=== PATIENT | female | born 1950 | race Caucasian/White ===

== ENCOUNTER 2018-01-08 20:38 | Emergency (ER) | payer MEDICARE, OTHER ==
--- NOTE | 2018-01-08 22:17 | EKG REPORT ---
SEVERITY:- NORMAL ECG - SINUS RHYTHM : Confirmed by: Jimenez Bianchi MD 08-Jan-2018 22:16:34
[2018-01-08 23:08] LABS: ABSOLUTE LYMPHOCYTES (AUTO) 2.1 10^3/uL (0.5-4.7); ABSOLUTE NEUT (AUTO) 4.2 10^3/uL (1.7-8.2); BASOPHILS % (AUTO) 0.6 % (0-2); EOSINOPHILS % (AUTO) 0.6 % (0-6); HEMATOCRIT 39.4 % (36.0-47.0); HEMOGLOBIN 13.6 g/dL (12.0-15.5); LYMPHOCYTES % (AUTO) 28.3 % (13-45); MEAN CORPUSCULAR HEMOGLOBIN 30.6 pg (27.0-33.4); MEAN CORPUSCULAR HGB CONC 34.5 g/dL (32.0-36.0); MEAN CORPUSCULAR VOLUME 89 fl (80-97); MONOCYTES % (AUTO) 13.6 % (3-13); PLATELET COUNT 272 10^3/uL (150-450); RED BLOOD COUNT 4.43 10^6/uL (3.72-5.28); SEGMENTED NEUTROPHILS % (AUTO) 56.9 % (42-78); TOTAL CELLS COUNTED % (AUTO) 100 %; WHITE BLOOD COUNT 7.5 10^3/uL (4.0-10.5)
[2018-01-08 23:33] LABS: ALANINE AMINOTRANSFERASE 119 U/L (9-52); ALBUMIN 3.8 g/dL (3.5-5.0); ANION GAP 8 (5-19); ASPARTATE AMINO TRANSFERASE 92 U/L (14-36); BILIRUBIN,DIRECT 0.2 mg/dL (0.0-0.4); BILIRUBIN,TOTAL 0.2 mg/dL (0.2-1.3); BLOOD UREA NITROGEN 17 mg/dL (7-20); CALCIUM 9.2 mg/dL (8.4-10.2); CARBON DIOXIDE 32 mmol/L (22-30); CHLORIDE 98 mmol/L (98-107); GLUCOSE 131 mg/dL (75-110); NEONATAL BILIRUBIN RESULT 0.1 mg/dL (0.1-1.1); POTASSIUM 4.3 mmol/L (3.6-5.0); SODIUM 138.3 mmol/L (137-145); TOTAL PROTEIN 6.8 g/dL (6.3-8.2)
[2018-01-08 23:36] LABS: ALKALINE PHOSPHATASE 145 U/L (38-126)
[2018-01-09 01:03] LABS: AMORPHOUS SEDIMENT,URINE TRACE /HPF
[2018-01-09 01:10] LABS: APPEARANCE,URINE SLIGHTLY-CLOUDY; BILIRUBIN,URINE NEGATIVE (NEGATIVE); COLOR,URINE AMBER; GLUCOSE, URINE NEGATIVE (NEGATIVE); KETONES,URINE NEGATIVE (NEGATIVE); PROTEIN,URINE 30 mg/dL (NEGATIVE); URINE SPECIFIC GRAVITY 1.032
[2018-01-09 01:11] LABS: LEUKOCYTE ESTERASE,URINE LARGE (NEGATIVE); NITRITE,URINE NEGATIVE (NEGATIVE); UROBILINOGEN,URINE NEGATIVE mg/dL (<2.0)
[2018-01-09] MEDS ORDERED: CEPHALEXIN 500 MG CAPSULE PO ONE (01:42)
[2018-01-09] MEDS ORDERED: KETOROLAC TROMETHAMINE INJ/PF 30 MG/1 ML SDV IV ONE (02:07)
[2018-01-09] MEDS ORDERED: CEFTRIAXONE INJ 1000 MG VIAL IV ONE (02:07)
[2018-01-09] MEDS ORDERED: PROCHLORPERAZINE EDISYLATE INJ 10 MG/2 ML VIAL IV ONE (02:07)
[2018-01-09] MEDS ORDERED: NORMAL SALINE 1000 ML 1,000 ML IV ONE (02:08)
--- NOTE | 2018-01-09 02:12 | ER Document Report ---
ED General - General Chief Complaint: General Weakness Stated Complaint: LOWER BACK PAIN Time Seen by Provider: 01/09/18 00:19 Notes: Patient is a 67-year-old female with past medical history as recorded who presents with multiple complaints. Her main complaint is of bilateral CVA tenderness that is a dull, constant throbbing pain that has been worsening over the last several days. She also notes associated body aches, weakness and headache. She saw her primary care doctor several days ago for the same complaint, was started on valacyclovir for possible onset of shingles but has not yet developed a rash or any specific area of dermatologic disturbance. She denies a history of similar symptoms in the past. She denies any focal abdominal pain, vomiting, weakness, numbness, confusion, but does note that she had a fever up to 102F today. She has been taking valacyclovir as well as doxycycline as prescribed by her primary care doctor without improvement of her symptoms. Nothing worsens her symptoms. TRAVEL OUTSIDE OF THE [place] IN LAST 30 DAYS: No - Related Data Allergies/Adverse Reactions: morphine [Morphine] Allergy (Severe, Verified 02/15/15 09:24) Hives Past Medical History - General Information source: Patient - Social History Smoking Status: Never Smoker Frequency of alcohol use: None Drug Abuse: None Lives with: Family Family History: Reviewed & Not Pertinent - Past Medical History Cardiac Medical History: Reports: Hx Hypercholesterolemia, Hx Hypertension - medication Denies: Hx Coronary Artery Disease, Hx Heart Attack Pulmonary Medical History: Reports: Hx Asthma - "years ago", Hx Bronchitis, Hx Pneumonia Denies: Hx COPD Neurological Medical History: Denies: Hx Cerebrovascular Accident, Hx Seizures GI Medical History: Denies: Hx Hepatitis, Hx Hiatal Hernia, Hx Ulcer Musculoskeltal Medical History: Reports Hx Arthritis Psychiatric Medical History: Reports: Hx Depression Infectious Medical History: Denies: Hx Hepatitis Past Surgical History: Reports: Hx Appendectomy, Hx Cholecystectomy, Hx Hysterectomy - 1986, Hx Open Heart Surgery - HEART CATH. Denies: Hx Mastectomy , Hx Pacemaker - Immunizations Hx Diphtheria, Pertussis, Tetanus Vaccination: No Review of Systems - Review of Systems Notes: Constitutional: Positive for fever. HENT: Negative for sore throat. Eyes: Negative for visual changes. Cardiovascular: Negative for chest pain. Respiratory: Negative for shortness of breath. Gastrointestinal: Negative for abdominal pain, vomiting or diarrhea. Positive flank pain Genitourinary: Positive for dysuria. Musculoskeletal: Negative for back pain. Skin: Negative for rash. Neurological: Positive for headache 10 point ROS negative except as marked above and in HPI. Physical Exam - Vital signs Vitals: Temp Pulse Resp BP Pulse Ox 99.6 F 85 14 154/60 H 94 01/08/18 21:11 01/08/18 21:11 01/08/18 21:11 01/08/18 21:11 01/08/18 21:11 Interpretation: Hypertensive Notes: PHYSICAL EXAMINATION: GENERAL: Well-appearing, well-nourished and in no acute distress. HEAD: Atraumatic, normocephalic. EYES: Pupils equal round and reactive to light, extraocular movements intact, sclera anicteric, conjunctiva are normal. ENT: nares patent, oropharynx clear without exudates. Moderately dry mucous membranes. NECK: Normal range of motion, supple without lymphadenopathy LUNGS: Breath sounds clear to auscultation bilaterally and equal. No wheezes rales or rhonchi. HEART: Regular rate and rhythm without murmurs ABDOMEN: Soft, nontender, normoactive bowel sounds. No guarding, no rebound. No masses appreciated. Bilateral CVA tenderness worse in the right EXTREMITIES: Normal range of motion, no pitting or edema. No cyanosis. NEUROLOGICAL: Face symmetric. Tongue protrudes midline. Extraocular motions intact. Pupils are 2 mm and equally reactive. Normal speech, normal gait. 5 out of 5 strength in both the distal and proximal upper and lower extremities bilaterally. Sensation is grossly intact throughout. Finger to nose testing normal. Pronator drift normal. PSYCH: Normal mood, normal affect. SKIN: Warm, Dry, normal turgor, no rashes or lesions noted. Course - Re-evaluation Re-evalutation: 01/09/18 02:09 Presentation is most consistent with acute pyelonephritis. Laboratories do demonstrate a large amount of white blood cells in the urine as well as bacteria. Patient has had constitutional symptoms at home as well as a fever. CVA tenderness is present on exam. The remainder laboratories are relatively unremarkable without evidence of renal dysfunction. I do not suspect an acute appendicitis, biliary pathology, pancreatitis, intra-abdominal abscess, or tubo- ovarian abscess based on history and examination. Patient has been given a dose of IV ceftriaxone and a liter of fluids. Patient is able to tolerate oral intake without difficulty. Regarding patient's headache: Headache was not maximal in onset, patient has no focal neurologic deficits, no nuchal rigidity, vital signs within normal limits, no papilledema, and patient is overall well in appearance. Based on clinical history and examination I do not suspect an acute subarachnoid hemorrhage, dural venous sinus thrombosis, acute meningitis, or intercranial mass. Given my low clinical suspicion for any acute life- threatening etiology, I do not feel advanced neuro imaging is indicated at this time. Patient will be discharged home on 7 day course of cephalexin. A urine culture has been sent. At this time will discharge with return precautions and follow-up recommendations. Verbal discharge instructions given a the bedside and opportunity for questions given. Medication warnings reviewed. Patient is in agreement with this plan and has verbalized understanding of return precautions and the need for primary care follow-up in the next 24-72 hours. - Vital Signs Vital signs: Temp Pulse Resp BP Pulse Ox 99.6 F 85 14 154/60 H 94 01/08/18 21:11 01/08/18 21:11 01/08/18 21:11 01/08/18 21:11 01/08/18 21:11 - Laboratory Result Diagrams: 01/08/18 22:35 01/08/18 22:35 Laboratory results interpreted by me: 01/08/18 01/08/18 01/09/18 22:35 22:35 00:40 Monocytes % 13.6 H Carbon Dioxide 32 H Glucose 131 H AST 92 H ALT 119 H Alkaline Phosphatase 145 H Urine Protein 30 H Ur Leukocyte Esterase LARGE H Urine Ascorbic Acid 20 H Discharge - Discharge Clinical Impression: Pyelonephritis Headache Qualifiers: Headache type: unspecified Headache chronicity pattern: acute headache Intractability: not intractable Qualified Code(s): R51 - Headache Condition: Good Disposition: HOME, SELF-CARE Additional Instructions: You have been diagnosed with a condition called pyelonephritis which is an infection involving your kidneys and bladder. You have been given a dose of antibiotics here in the emergency department to help begin to treat this infection. Your also being sent home on antibiotics. Please start taking these later on today when you fill the prescription. Complete the course even if you feel better. Please return if you have persistent vomiting, pass out, have worsening pain, become unable to tolerate fluids, or have any other symptoms that are concerning to you. Please follow-up with your primary care physician in the next 24-48 hours. Discontinue doxycycline and valacyclovir. Prescriptions: Cephalexin Monohydrate [Keflex 500 mg Capsule] 500 mg PO Q6H 7 Days capsule Referrals: VIRAJ WHATLEY MD [Primary Care Provider] - Follow up in 3-5 days
[2018-01-09 05:35] VITALS: BP 148/66
== END 2018-01-09 05:00 | disposition home or self-care (01) ==
LOC: ER 20:38
DX: N12 Tubulo-interstitial nephritis, not specified as acute or chronic (principal); R51 Headache; R53.1 Weakness; M54.5 Low back pain; E78.00 Pure hypercholesterolemia, unspecified; I10 Essential (primary) hypertension; Z88.6 Allergy status to analgesic agent; Z90.49 Acquired absence of other specified parts of digestive tract; Z90.710 Acquired absence of both cervix and uterus
CPT/HCPCS: 93005; 99283; 96361; 96374; 96375; 36415; 87086; 85025; 80053; 81001; 93010; J1885; J0780; J0696; J7030

== ENCOUNTER 2018-10-31 07:31 | Day surgery (SDC) | payer MEDICARE ==
[2018-10-31] MEDS ORDERED: DIPHENHYDRAMINE HCL 50 MG/ML VIAL ONE (07:33)
[2018-10-31] MEDS ORDERED: ONDANSETRON HCL INJ/PF 4 MG/2 ML SDV ONE (07:33)
[2018-10-31] MEDS ORDERED: FLUMAZENIL INJ 0.5 MG/5 ML VIAL ONE (07:34)
[2018-10-31] MEDS ORDERED: NALOXONE HCL INJ/PF 0.4 MG/1 ML SDV ONE (07:34)
[2018-10-31] MEDS ORDERED: FENTANYL CITRATE INJ/PF 100 MCG/2 ML AMPUL ONE (07:34)
[2018-10-31] MEDS ORDERED: GLUCAGON,HUMAN RECOMB 1 MG INJ ONE (07:35)
[2018-10-31] MEDS ORDERED: EPINEPHRINE INJ 1 MG/10 ML DISP.SYRIN ONE (07:35)
[2018-10-31] MEDS: MIDAZOLAM 2 MG/2 ML INJ ONE ×2 (08:14→08:17)
--- NOTE | 2018-10-31 08:55 | Operative Report ---
Nonrecallable Operative Report DATE OF SURGERY: 10/31/18 PREOPERATIVE DIAGNOSIS: rectal bleeding POSTOPERATIVE DIAGNOSIS: rectal bleeding OPERATION: colonoscopy and hemorrhoid banding SURGEON: ULYSSES MORENO ANESTHESIA: Moderate Sedation TISSUE REMOVED OR ALTERED: none COMPLICATIONS: none ESTIMATED BLOOD LOSS: none INTRAOPERATIVE FINDINGS: Procedure the patient was in a left lateral decubitus position. Appropriate timeout formation of site. We used the Olympus adult colonoscope with the procedure. Digital rectal exam was performed. The Olympus colonoscope was easily passed into the rectum and advanced to a distance of approximately 130 cm. We were easily able to reach the distal ascending colon. Not able to pass the scope all the way to the ileocecal valve. The scope was slowly withdrawn over the course of approximately 3 minutes. The entire circumferential ascending colon hepatic flexure transverse colon splenic flexure and descending colon were visualized. There were no polyps seen. As we reached the distal descending colon and sigmoid colon. Number of diverticula were seen. Photo documentation was obtained. As we reached the rectum we identified a number of large grade 3 hemorrhoids. Scope was completely withdrawn. After the scope was withdrawn and anoscopy was performed. Hemorrhoidal bands were placed using the suction hemorrhoidal banding device. Hemorrhoid bands were placed at the 7:00 and the 2 o'clock position. Patient tolerated the procedure well was transferred to recovery in stable condition. Anesthesia was Versed 4 mg and fentanyl 50 mcg.
[2018-10-31 09:43] VITALS: BP 125/53
== END 2018-10-31 10:00 | disposition home or self-care (01) ==
LOC: END 07:31
PROVIDERS: ATTEND Surgery
DX: K64.2 Third degree hemorrhoids (principal); K57.30 Diverticulosis of large intestine without perforation or abscess without bleeding; K62.5 Hemorrhage of anus and rectum; I10 Essential (primary) hypertension; R73.03 Prediabetes
CPT/HCPCS: 45378; 46221; 82962; J2250; J3010; J0171; J1200; J1610; J2310; J2405; J3490

== ENCOUNTER 2018-12-21 20:39 | Emergency (ER) | payer MEDICARE ==
[2018-12-21 21:13] VITALS: BP 179/81
[2018-12-21] MEDS ORDERED: IPRATROPIUM/ALBUTEROL 0.5-2.5 MG/3 ML AMPUL NEB ONE (21:50)
--- NOTE | 2018-12-21 21:53 | ER Document Report ---
ED Medical Screen (RME) - General Chief Complaint: Shortness Of Breath Stated Complaint: CHEST WALL PAIN Time Seen by Provider: 12/21/18 21:48 Primary Care Provider: VIRAJ WHATLEY MD [Primary Care Provider] - Follow up as needed Notes: Patient is a 68-year-old female who presents the emergency department with a chief complaint of shortness of breath. Her symptoms started yesterday and she states that she feels "winded." She describes her pain as a fist being punched in her shoulder left blade. She also states that she feels like her heart is beating faster, has some dizziness, and has a faint feeling. She now has an associated cough. 4-5 weeks ago she was diagnosed with pneumonia in urgent care and was given doxycycline and prednisone. She finished her course of antibiotics and steroids and started to feel better, but states that yesterday she had symptoms. She has a past medical history of hypertension hyperlipidemia. Exam: Diminished breath sounds throughout. S1-S2. Normal rhythm and rate. I have greeted and performed a rapid initial assessment of this patient. A comprehensive ED assessment and evaluation of the patient, analysis of test results and completion of medical decision making process will be conducted by an additional ED providers. TRAVEL OUTSIDE OF THE [place] IN LAST 30 DAYS: No - Related Data Allergies/Adverse Reactions: morphine [Morphine] Allergy (Severe, Verified 12/21/18 20:44) Hives Past Medical History - Social History Drug Abuse: None - Past Medical History Cardiac Medical History: Reports: Hx Hypercholesterolemia, Hx Hypertension Denies: Hx Coronary Artery Disease, Hx Heart Attack Pulmonary Medical History: Reports: Hx Asthma - "years ago", Hx Bronchitis, Hx Pneumonia Denies: Hx COPD Neurological Medical History: Denies: Hx Cerebrovascular Accident, Hx Seizures Renal/ Medical History: Denies: Hx Peritoneal Dialysis GI Medical History: Denies: Hx Hepatitis, Hx Hiatal Hernia, Hx Ulcer Musculoskeltal Medical History: Reports Hx Arthritis Psychiatric Medical History: Reports: Hx Depression Infectious Medical History: Denies: Hx Hepatitis Past Surgical History: Reports: Hx Appendectomy, Hx Cholecystectomy, Hx Hysterectomy, Hx Open Heart Surgery - HEART CATH. Denies: Hx Mastectomy, Hx Pacemaker - Immunizations Hx Diphtheria, Pertussis, Tetanus Vaccination: Yes Influenza Administration Date for 07/2017 - 12/2017 Season: 07/10/18 Physical Exam - Vital signs Vitals: Temp Pulse Resp BP Pulse Ox 99.3 F 102 H 16 179/81 H 94 12/21/18 21:11 12/21/18 21:11 12/21/18 21:11 12/21/18 21:11 12/21/18 21:11 Course - Vital Signs Vital signs: Temp Pulse Resp BP Pulse Ox 99.3 F 102 H 16 179/81 H 94 12/21/18 21:11 12/21/18 21:11 12/21/18 21:11 12/21/18 21:11 12/21/18 21:11 Doctor's Discharge - Discharge Referrals: VIRAJ WHATLEY MD [Primary Care Provider] - Follow up as needed
--- NOTE | 2018-12-21 22:38 | RADIOLOGY REPORT (SQ) ---
EXAM DESCRIPTION: XR CHEST 2 VIEWS COMPLETED DATE/TME: 12/21/2018 21:49 CLINICAL HISTORY: 68 years, Female, shortness of breath Compared to 02/15/2015. FINDINGS: The heart is not enlarged. Lungs are clear. No pleural effusion. No consolidation. IMPRESSION: No acute disease.
[2018-12-22 00:49] LABS: ABSOLUTE BASOPHILS # (AUTO) 0.2 10^3/uL (0.0-0.2); ABSOLUTE EOSINOPHILS # (AUTO) 0.3 10^3/uL (0.0-0.6); ABSOLUTE LYMPHOCYTES (AUTO) 3.2 10^3/uL (0.5-4.7); ABSOLUTE NEUT (AUTO) 10.8 10^3/uL (1.7-8.2); EOSINOPHILS % (AUTO) 1.8 % (0-6); HEMOGLOBIN 14.5 g/dL (12.0-15.5); LYMPHOCYTES % (AUTO) 20.9 % (13-45); MEAN CORPUSCULAR HEMOGLOBIN 30.8 pg (27.0-33.4); MEAN CORPUSCULAR HGB CONC 35.3 g/dL (32.0-36.0); MEAN CORPUSCULAR VOLUME 87 fl (80-97); MONOCYTES % (AUTO) 6.4 % (3-13); PLATELET COUNT 325 10^3/uL (150-450); RED BLOOD COUNT 4.69 10^6/uL (3.72-5.28); RED CELL DISTRIBUTION WIDTH 13.6 % (11.5-14.0); SEGMENTED NEUTROPHILS % (AUTO) 69.9 % (42-78); TOTAL CELLS COUNTED % (AUTO) 100 %; WHITE BLOOD COUNT 15.5 10^3/uL (4.0-10.5)
[2018-12-22 01:06] LABS: ALANINE AMINOTRANSFERASE 45 U/L (9-52); ALBUMIN 4.2 g/dL (3.5-5.0); ALKALINE PHOSPHATASE 124 U/L (38-126); ANION GAP 10 (5-19); ASPARTATE AMINO TRANSFERASE 40 U/L (14-36); BILIRUBIN,DIRECT 0.2 mg/dL (0.0-0.4); BILIRUBIN,TOTAL 0.5 mg/dL (0.2-1.3); BLOOD UREA NITROGEN 10 mg/dL (7-20); CALCIUM 9.3 mg/dL (8.4-10.2); CARBON DIOXIDE 31 mmol/L (22-30); CHLORIDE 98 mmol/L (98-107); CREATINE KINASE 64 U/L (30-135); GLUCOSE 154 mg/dL (75-110); SODIUM 138.6 mmol/L (137-145); TOTAL PROTEIN 7.6 g/dL (6.3-8.2)
[2018-12-22] MEDS ORDERED: IPRATROPIUM/ALBUTEROL 0.5-2.5 MG/3 ML AMPUL NEB ONE (01:11)
[2018-12-22 01:18] LABS: CREATINE KINASE MB 0.59 ng/mL (<4.55)
[2018-12-22 01:19] LABS: TROPONIN I < 0.012 ng/mL
[2018-12-22] MEDS ORDERED: ALBUTEROL SULFATE HFA (90 MCG/PUFF) 8 GM MDI (1 MDI/ER DISP) IH PRN (01:26)
[2018-12-22] MEDS ORDERED: BENZONATATE 100 MG CAPSULE PO ONE (01:28)
--- NOTE | 2018-12-22 01:29 | ER Document Report ---
ED General - General Chief Complaint: Shortness Of Breath Stated Complaint: CHEST WALL PAIN Time Seen by Provider: 12/21/18 21:48 Primary Care Provider: VIRAJ WHATLEY MD [Primary Care Provider] - Follow up in 3-5 days Notes: Patient is a 68-year-old female who presents the emergency department with a chief complaint of shortness of breath. Her symptoms started yesterday and she states that she feels "winded." She describes her pain as a fist being punched in her shoulder left blade. She also states that she feels like her heart is beating faster, has some dizziness, and has a faint feeling. She now has an associated cough. 4-5 weeks ago she was diagnosed with pneumonia in urgent care and was given doxycycline and prednisone. She finished her course of antibiotics and steroids and started to feel better, but states that yesterday she had symptoms. She has a past medical history of hypertension hyperlipidemia. TRAVEL OUTSIDE OF THE [place] IN LAST 30 DAYS: No - Related Data Allergies/Adverse Reactions: morphine [Morphine] Allergy (Severe, Verified 12/21/18 20:44) Hives Past Medical History - Social History Smoking Status: Never Smoker Drug Abuse: None Family History: Reviewed & Not Pertinent Patient has suicidal ideation: No Patient has homicidal ideation: No - Past Medical History Cardiac Medical History: Reports: Hx Hypercholesterolemia, Hx Hypertension Denies: Hx Coronary Artery Disease, Hx Heart Attack Pulmonary Medical History: Reports: Hx Asthma - "years ago", Hx Bronchitis, Hx Pneumonia Denies: Hx COPD Neurological Medical History: Denies: Hx Cerebrovascular Accident, Hx Seizures Renal/ Medical History: Denies: Hx Peritoneal Dialysis GI Medical History: Denies: Hx Hepatitis, Hx Hiatal Hernia, Hx Ulcer Musculoskeletal Medical History: Reports Hx Arthritis Psychiatric Medical History: Reports: Hx Depression Infectious Medical History: Denies: Hx Hepatitis Past Surgical History: Reports: Hx Appendectomy, Hx Cholecystectomy, Hx Hysterectomy, Hx Open Heart Surgery - HEART CATH. Denies: Hx Mastectomy, Hx Pacemaker - Immunizations Hx Diphtheria, Pertussis, Tetanus Vaccination: Yes Hx Pneumococcal Vaccination: 10/10/17 Review of Systems - Review of Systems Notes: REVIEW OF SYSTEMS: CONSTITUTIONAL : Denies recent illness. Denies recent unintentional weight loss. Denies fever, chills, or sweats. EENT: See HPI. CARDIOVASCULAR: See HPI RESPIRATORY: Denies shortness of breath, cough, congestion, difficulty breathing, or wheezing. GASTROINTESTINAL: Denies nausea, vomiting, and diarrhea. Denies abdominal pain. Denies constipation. GENITOURINARY: Denies difficulty urinating, burning, blood in urine, urgency or frequency. MUSCULOSKELETAL: Denies neck and back pain. Denies joint pain or swelling. SKIN: Denies rash, itchiness, or lesions HEMATOLOGIC : Denies easy bruising or bleeding. LYMPHATIC: Denies swollen, painful, enlarged glands. NEUROLOGICAL: Denies no numbness or tingling denies weakness. Denies headache. Denies altered mental status. Denies alteration in speech. PSYCHIATRIC: Denies stress, anxiety, alteration in sleep patterns, or depression. All other systems reviewed and negative. Physical Exam - Vital signs Vitals: Temp Pulse Resp BP Pulse Ox 99.3 F 102 H 16 179/81 H 94 12/21/18 21:11 12/21/18 21:11 12/21/18 21:11 12/21/18 21:11 12/21/18 21:11 - Notes Notes: PHYSICAL EXAMINATION: GENERAL: Appears well, healthy, well-nourished, no acute distress. HEAD: Normocephalic, atraumatic. Tenderness noted to maxillary sinuses. EYES: PERRL, conjunctiva normal, all extraocular movements intact, sclera nonicteric ENT: Moist mucous membranes. NECK: Supple, no noticeable swelling, redness, rash. Normal range of motion. LUNGS: Equal breath sounds bilaterally and diminished to auscultation. No wheezes rales or rhonchi. Cough noted. CARDIOVASCULAR: S1-S2, regular rate, regular rhythm. Radial pulses 2+, normal. ABDOMEN: Normoactive bowel sounds. Soft, nontender, no guarding, no rebound tenderness, and no masses palpated. EXTREMITIES: Normal strength and range of motion, no pitting or edema. No cyanosis. NEUROLOGICAL: Moves all extremities upon command. Strength 5/5 in all extremities. PSYCH: Normal mood, normal affect. SKIN: Warm, dry. No rash, lesions, ulcerations noted. Normal skin turgor. Course - Re-evaluation Re-evalutation: The patient has a leukocytosis of 15,000. Her chest X-ray is unremarkable. No pneumonia noted. Her troponin is negative and due to the patient's associated cough, I have a very low suspicion for ACS. Her lung sounds have improved after receiving her duoneb treatment. The patient does have sinus pressure that she has had for the past week or so. She will be started on amoxicillin for 10 days. I have provided her with an inhaler and a spacer here in the ED. She will follow up with her PCP. Return precautions were given. Verbal discharge instructions were given to the patient. They verbalized understanding. They are stable for discharge. - Vital Signs Vital signs: Temp Pulse Resp BP Pulse Ox 99.3 F 102 H 16 179/81 H 94 12/21/18 21:11 12/21/18 21:11 12/21/18 21:11 12/21/18 21:11 12/21/18 21:11 - Laboratory Result Diagrams: 12/22/18 00:40 12/22/18 00:40 Laboratory results interpreted by me: 12/22/18 12/22/18 00:40 00:40 WBC 15.5 H Absolute Neutrophils 10.8 H Carbon Dioxide 31 H Glucose 154 H AST 40 H Discharge - Discharge Clinical Impression: Chest pain Qualifiers: Chest pain type: other chest pain Qualified Code(s): R07.89 - Other chest pain Sinusitis Qualifiers: Sinusitis location: frontal Chronicity: acute Recurrence: non-recurrent Qualified Code(s): J01.10 - Acute frontal sinusitis, unspecified Condition: Stable Disposition: HOME, SELF-CARE Additional Instructions: You were seen today in the emergency department for chest pain. Your labs were normal. Your chest x-ray is normal. You have been given an inhaler. You may take 1 puff every 4-6 hours as needed for any shortness of breath. You have also been given Tessalon Perles to help with your cough. You may take 1 tablet every 8 hours as needed. Please follow-up with your primary care provider within the next 3-5 days in regards to this visit. If you develop shortness of breath, worsening symptoms, fever greater than 100.4 F while on Motrin and Tylenol, or any symptoms that are worrisome to you, please return to the emergency department. Prescriptions: Benzonatate [Tessalon Perles 100 mg Capsule] 100 mg PO Q8HP PRN #40 capsule PRN Reason: Amoxicillin Trihydrate [Amoxil 875 mg Tablet] 1 tab PO BID #20 tablet Referrals: VIRAJ WHATLEY MD [Primary Care Provider] - Follow up in 3-5 days
--- NOTE | 2018-12-22 07:57 | EKG REPORT ---
SEVERITY:- BORDERLINE ECG - SINUS RHYTHM : Confirmed by: Jimenez Bianchi MD 22-Dec-2018 07:56:37
== END 2018-12-22 01:37 | disposition home or self-care (01) ==
LOC: ER 20:39
DX: J01.10 Acute frontal sinusitis, unspecified (principal); R07.89 Other chest pain; R06.02 Shortness of breath; E78.00 Pure hypercholesterolemia, unspecified; I10 Essential (primary) hypertension; Z88.6 Allergy status to analgesic agent; Z90.49 Acquired absence of other specified parts of digestive tract; Z90.710 Acquired absence of both cervix and uterus
CPT/HCPCS: 93005; 99284; 36415; 82553; 82550; 85025; 80053; 84484; 71046; 93010; J3490

== ENCOUNTER 2019-06-28 12:02 | Emergency (ER) | payer MEDICARE ==
[2019-06-28] MEDS ORDERED: DIPHENHYDRAMINE HCL 50 MG/ML VIAL IV ONE (12:22)
[2019-06-28] MEDS ORDERED: NORMAL SALINE 1000 ML 1,000 ML IV ONE (12:23)
[2019-06-28] MEDS ORDERED: METOCLOPRAMIDE HCL INJ/PF 10 MG/2 ML SDV IV ONE (12:23)
--- NOTE | 2019-06-28 12:25 | ER Document Report ---
ED Medical Screen (RME) - General Chief Complaint: Headache Stated Complaint: HEADACHE Time Seen by Provider: 06/28/19 12:17 Primary Care Provider: STACIE ZAFAR MD [Primary Care Provider] - Follow up as needed Notes: Patient is a 68-year-old female presents emergency department with a chief complaint of a headache. Her headache started this morning. It is the account of her head and goes down the side of her head on both sides and into her neck. She states that she feels like she is an ice pick in the back of her eye. She denies any new weakness. Patient states that she was recently diagnosed with MRSA in her urine and was placed on Cipro. Exam: 5 out of 5 strength in all extremities. I have greeted and performed a rapid initial assessment of this patient. A comprehensive ED assessment and evaluation of the patient, analysis of test results and completion of medical decision making process will be conducted by an additional ED providers. TRAVEL OUTSIDE OF THE [place] IN LAST 30 DAYS: No - Related Data Allergies/Adverse Reactions: morphine [Morphine] Allergy (Severe, Verified 12/21/18 20:44) Hives Past Medical History - Social History Chew tobacco use (# tins/day): No Frequency of alcohol use: None - Past Medical History Cardiac Medical History: Reports: Hx Hypercholesterolemia, Hx Hypertension Denies: Hx Coronary Artery Disease, Hx Heart Attack Pulmonary Medical History: Reports: Hx Asthma - "years ago", Hx Bronchitis, Hx Pneumonia Denies: Hx COPD Neurological Medical History: Denies: Hx Cerebrovascular Accident, Hx Seizures Renal/ Medical History: Denies: Hx Peritoneal Dialysis GI Medical History: Denies: Hx Hepatitis, Hx Hiatal Hernia, Hx Ulcer Musculoskeltal Medical History: Reports Hx Arthritis Psychiatric Medical History: Reports: Hx Depression Infectious Medical History: Denies: Hx Hepatitis Past Surgical History: Reports: Hx Appendectomy, Hx Cholecystectomy, Hx Hysterectomy, Hx Open Heart Surgery - HEART CATH. Denies: Hx Mastectomy, Hx Pacemaker - Immunizations Hx Diphtheria, Pertussis, Tetanus Vaccination: Yes Influenza Administration Date for 07/2017 - 12/2017 Season: 07/10/18 Physical Exam - Vital signs Vitals: Temp Pulse Resp BP Pulse Ox 97.4 F 58 L 16 211/74 H 96 06/28/19 12:08 06/28/19 12:08 06/28/19 12:08 06/28/19 12:08 06/28/19 12:08 Course - Vital Signs Vital signs: Temp Pulse Resp BP Pulse Ox 97.4 F 58 L 16 211/74 H 96 06/28/19 12:08 06/28/19 12:08 06/28/19 12:08 06/28/19 12:08 06/28/19 12:08 Doctor's Discharge - Discharge Referrals: STACIE ZAFAR MD [Primary Care Provider] - Follow up as needed
[2019-06-28 12:35] LABS: APPEARANCE,URINE CLEAR; BILIRUBIN,URINE NEGATIVE (NEGATIVE); COLOR,URINE YELLOW; GLUCOSE, URINE NEGATIVE (NEGATIVE); KETONES,URINE NEGATIVE (NEGATIVE); LEUKOCYTE ESTERASE,URINE SMALL (NEGATIVE); NITRITE,URINE NEGATIVE (NEGATIVE); PROTEIN,URINE NEGATIVE (NEGATIVE); URINE SPECIFIC GRAVITY 1.012; UROBILINOGEN,URINE NEGATIVE mg/dL (<2.0)
--- NOTE | 2019-06-28 13:17 | ER Document Report ---
ED General - General Chief Complaint: Headache Stated Complaint: HEADACHE Time Seen by Provider: 06/28/19 12:17 Primary Care Provider: STACIE ZAFAR MD [ACTIVE STAFF] - Follow up as needed TRAVEL OUTSIDE OF THE [place] IN LAST 30 DAYS: No - HPI Patient complains to provider of: headache Notes: 68-year-old female presents with 10/10 throbbing headache started approximately 4- 5 AM. Nothing makes the headache better or worse. Denies any focal neurologic symptoms. Denies fever chills or head trauma. - Related Data Allergies/Adverse Reactions: morphine [Morphine] Allergy (Severe, Verified 12/21/18 20:44) Hives Past Medical History - Social History Smoking Status: Never Smoker Chew tobacco use (# tins/day): No Frequency of alcohol use: None Family History: Reviewed & Not Pertinent Patient has suicidal ideation: No Patient has homicidal ideation: No - Past Medical History Cardiac Medical History: Reports: Hx Hypercholesterolemia, Hx Hypertension Denies: Hx Coronary Artery Disease, Hx Heart Attack Pulmonary Medical History: Reports: Hx Asthma - "years ago", Hx Bronchitis, Hx Pneumonia Denies: Hx COPD Neurological Medical History: Denies: Hx Cerebrovascular Accident, Hx Seizures Renal/ Medical History: Denies: Hx Peritoneal Dialysis GI Medical History: Denies: Hx Hepatitis, Hx Hiatal Hernia, Hx Ulcer Musculoskeletal Medical History: Reports Hx Arthritis Psychiatric Medical History: Reports: Hx Depression Infectious Medical History: Denies: Hx Hepatitis Past Surgical History: Reports: Hx Appendectomy, Hx Cholecystectomy, Hx Hysterectomy, Hx Open Heart Surgery - HEART CATH. Denies: Hx Mastectomy, Hx Pacemaker - Immunizations Hx Diphtheria, Pertussis, Tetanus Vaccination: Yes Hx Pneumococcal Vaccination: 10/10/17 Review of Systems - Review of Systems Notes: REVIEW OF SYSTEMS: CONSTITUTIONAL: -fevers, -chills EENT: -eye pain, -difficulty swallowing, -nasal congestion CARDIOVASCULAR: -chest pain, -syncope. RESPIRATORY: -cough, -SOB GASTROINTESTINAL: -abdominal pain, -nausea, -vomiting, -diarrhea GENITOURINARY: -dysuria, -hematuria MUSCULOSKELETAL: -back pain, -neck pain SKIN: -rash or skin lesions. HEMATOLOGIC: -easy bruising or bleeding. LYMPHATIC: -swollen, enlarged glands. NEUROLOGICAL: -altered mental status or loss of consciousness, positive headache, -neurologic symptoms PSYCHIATRIC: -anxiety, -depression. ALL OTHER SYSTEMS REVIEWED AND NEGATIVE. Physical Exam - Vital signs Vitals: Temp Pulse Resp BP Pulse Ox 97.4 F 58 L 16 211/74 H 96 06/28/19 12:08 06/28/19 12:08 06/28/19 12:08 06/28/19 12:08 06/28/19 12:08 Course - Re-evaluation Re-evalutation: 06/28/19 15:32 Patient given antiemetics diphenhydramine fluid resuscitation patient feeling ma rkedly improved. Extensive lab work-up unremarkable at this time. Patient has had a headache for greater than 6 hours. Mother CAT scan head shows no acute intracranial hemorrhage. Or other focal findings. Patient blood pressure also markedly improved after great reduction in her headache. 06/28/19 16:45 Lumbar puncture results return. Tube 1 had 61 RBCs, TUBE #2 17 RBCs. No subarachnoid hemorrhage, no signs of infection clear tube Patient be discharged home she is now pain-free follow-up PCP return if anything changes - Vital Signs Vital signs: Temp Pulse Resp BP Pulse Ox 97.4 F 58 L 17 155/85 H 96 06/28/19 12:08 06/28/19 12:08 06/28/19 14:02 06/28/19 14:02 06/28/19 14:02 - Laboratory Result Diagrams: 06/28/19 13:05 06/28/19 13:05 Laboratory results interpreted by me: 06/28/19 06/28/19 12:20 13:05 Glucose 111 H AST 40 H Alkaline Phosphatase 127 H Ur Leukocyte Esterase SMALL H Discharge - Discharge Clinical Impression: Headache Qualifiers: Headache type: unspecified Headache chronicity pattern: acute headache Intractability: not intractable Qualified Code(s): R51 - Headache Condition: Stable Disposition: HOME, SELF-CARE Instructions: Headache ([facility]) Referrals: STACIE ZAFAR MD [ACTIVE STAFF] - Follow up as needed
[2019-06-28 13:20] LABS: ABSOLUTE BASOPHILS # (AUTO) 0.1 10^3/uL (0.0-0.2); ABSOLUTE EOSINOPHILS # (AUTO) 0.2 10^3/uL (0.0-0.6); ABSOLUTE LYMPHOCYTES (AUTO) 3.4 10^3/uL (0.5-4.7); ABSOLUTE MONOCYTES (AUTO) 0.7 10^3/uL (0.1-1.4); ABSOLUTE NEUT (AUTO) 4.8 10^3/uL (1.7-8.2); BASOPHILS % (AUTO) 0.8 % (0-2); EOSINOPHILS % (AUTO) 1.9 % (0-6); HEMATOCRIT 38.5 % (36.0-47.0); HEMOGLOBIN 13.3 g/dL (12.0-15.5); LYMPHOCYTES % (AUTO) 37.4 % (13-45); MEAN CORPUSCULAR HEMOGLOBIN 31.3 pg (27.0-33.4); MEAN CORPUSCULAR HGB CONC 34.6 g/dL (32.0-36.0); MEAN CORPUSCULAR VOLUME 90 fl (80-97); MONOCYTES % (AUTO) 7.4 % (3-13); PLATELET COUNT 297 10^3/uL (150-450); RED BLOOD COUNT 4.26 10^6/uL (3.72-5.28); RED CELL DISTRIBUTION WIDTH 13.4 % (11.5-14.0); SEGMENTED NEUTROPHILS % (AUTO) 52.5 % (42-78); TOTAL CELLS COUNTED % (AUTO) 100 %; WHITE BLOOD COUNT 9.2 10^3/uL (4.0-10.5)
--- NOTE | 2019-06-28 13:39 | RADIOLOGY REPORT (SQ) ---
EXAM DESCRIPTION: CT HEAD WITHOUT COMPLETED DATE/TIME: 06/28/2019 1:19 pm REASON FOR STUDY: headache COMPARISON: None. TECHNIQUE: Axial images acquired through the brain without intravenous contrast. Images reviewed wi th bone, brain and subdural windows. Additional sagittal and coronal reconstructions were generated. Images stored on PACS. All CT scanners at this facility use dose modulation, iterative reconstruction, and/or weight based d osing when appropriate to reduce radiation dose to as low as reasonably achievable (ALARA). [facility]: Dose Right [facility]: CareDose [facility]: Dose Right [facility]: Teradose 4D [facility]: [employer] RADIATION DOSE: CT Rad equipment meets quality standard of care and radiation dose reduction techniq ues were employed. CTDIvol: 53.2 mGy. DLP: 1017 mGy-cm. mGy. LIMITATIONS: None. FINDINGS: VENTRICLES: Normal size and contour. CEREBRUM: No masses. No hemorrhage. No midline shift. No evidence for acute infarction. Normal gra y/white matter differentiation. No areas of low density in the white matter. CEREBELLUM: No masses. No hemorrhage. No alteration of density. No evidence for acute infarction. EXTRAAXIAL SPACES: No fluid collections. No masses. Partially empty sella turcica, a nonspecific fi nding. ORBITS AND GLOBE: No intra- or extraconal masses. Normal contour of globe without masses. CALVARIUM: No fracture. PARANASAL SINUSES: No fluid or mucosal thickening. SOFT TISSUES: No mass or hematoma. OTHER: No other significant finding. IMPRESSION: No evidence of acute intracranial process. EVIDENCE OF ACUTE STROKE: NO. COMMENT: Quality ID # 436: Final reports with documentation of one or more dose reduction techniques (e.g., Automated exposure control, adjustment of the mA and/or kV according to patient size, use of iterative reconstruction technique) TECHNICAL DOCUMENTATION: JOB ID: [id number] [employer]- All Rights Reserved Reading location - IP/workstation name: [email or web address]
[2019-06-28 14:09] LABS: ALBUMIN 3.9 g/dL (3.5-5.0); ALKALINE PHOSPHATASE 127 U/L (38-126); ANION GAP 9 (5-19); ASPARTATE AMINO TRANSFERASE 40 U/L (14-36); BILIRUBIN,DIRECT 0.1 mg/dL (0.0-0.4); BILIRUBIN,TOTAL 0.5 mg/dL (0.2-1.3); BLOOD UREA NITROGEN 12 mg/dL (7-20); CARBON DIOXIDE 29 mmol/L (22-30); CHLORIDE 100 mmol/L (98-107); GLUCOSE 111 mg/dL (75-110); POTASSIUM 4.2 mmol/L (3.6-5.0); TOTAL PROTEIN 6.9 g/dL (6.3-8.2)
[2019-06-28 14:29] LABS: INTERNATIONAL RATION (INR) 0.91; PROTHROMBIN TIME 12.2 SEC (11.4-15.4)
--- NOTE | 2019-06-28 15:53 | RADIOLOGY REPORT (SQ) ---
EXAM DESCRIPTION: FLUORO/NEEDLE PLACEMENT/SPINE; LUMBAR PUNCTURE COMPLETED DATE/TIME: 06/28/2019 3:40 pm REASON FOR STUDY: HEADACHE; headache COMPARISON: CT brain 06/18/2019 FLUOROSCOPY TIME: 29 seconds 4 digital radiographic images saved to PACS. TECHNIQUE: Fluoroscopic guided lumbar puncture. LIMITATIONS: None. PROCEDURE: After written consent and assessment were obtained, the patient was brought into the fluo roscopy room and placed prone on the table. The patient's lower back was prepped in a sterile fashio n and an entry site was selected under live fluoroscopic guidance. The entry site was anesthetized wi th 1% lidocaine. A 15 cm long 20 gauge needle was advanced through the skin and into the thecal sac a t the level left paracentral L2-3. After approximately 10.5 ml was drained, the needle was removed a nd a sterile bandage was placed of the site. Specimens were sent to the lab for testing. A fluorosc opic spot image was saved to PACS confirming level access. FINDINGS: Clear CSF, opening pressure 18 cm of water IMPRESSION: Lumbar puncture under fluoroscopy. No immediate complication. COMMENT: Patient medication list reviewed: Yes- Quality ID# 130:Eligible professional attests to doc umenting in the medical record they obtained, updated, or reviewed the patient's current medications. . Quality ID 145: Final reports for procedures using fluoroscopy that document radiation exposure jr carlton, or exposure time and number of fluorographic images (if radiation exposure indices are not avail able) TECHNICAL DOCUMENTATION: JOB ID: [id number] [employer]- All Rights Reserved Reading location - IP/workstation name: [email or web address]
[2019-06-28 16:22] LABS: GLUCOSE,CSF 66 mg/dL (40-70); PROTEIN,CSF 47 mg/dL (12-60)
[2019-06-28 16:36] LABS: APPEARANCE ALL TUBES CLEAR; COLOR ALL TUBES COLORLESS; CSF TUBE NUMBER 1
[2019-06-28 16:37] LABS: RED BLOOD CELL,CSF 61 /uL (0-10); VOLUME TUBE 1 2.2 CC; VOLUME TUBE 3 2.5 CC; VOLUME TUBE 4 3.3 CC
[2019-06-28 16:38] LABS: APPEARANCE ALL TUBES CLEAR; COLOR ALL TUBES COLORLESS; CSF TUBE NUMBER 4; WHITE BLOOD CELL,CSF 2 /uL (0-5)
[2019-06-28 16:39] LABS: RED BLOOD CELL,CSF 17 /uL (0-10); VOLUME TUBE 1 2.2 CC; VOLUME TUBE 3 2.5 CC; VOLUME TUBE 4 3.3 CC
[2019-06-28 16:40] LABS: WHITE BLOOD CELL,CSF 0 /uL (0-5)
[2019-06-28 18:22] VITALS: BP 146/59
== END 2019-06-28 18:25 | disposition home or self-care (01) ==
LOC: ER 12:02
DX: R51 Headache (principal); I10 Essential (primary) hypertension; J45.909 Unspecified asthma, uncomplicated; Z88.5 Allergy status to narcotic agent
CPT/HCPCS: 96374; 99284; 96361; 96375; 36415; 87070; 87205; 85025; 85610; 89050; 82945; 84157; 80053; 81001; 77003; 62270; 70450; J1200; J2765; J7030

== ENCOUNTER 2020-07-20 11:33 | Emergency (ER) | payer MEDICARE ==
[2020-07-20] MEDS ORDERED: OXYCODONE-ACETAMINOPHEN 5-325 MG TABLET PO ONE (12:00)
[2020-07-20] MEDS ORDERED: KETOROLAC TROMETHAMINE INJ/PF 30 MG/1 ML SDV IV ONE (12:00)
[2020-07-20] MEDS ORDERED: DEXAMETHASONE SOD PHOS INJ 10 MG/1 ML VIAL IV ONE (12:00)
--- NOTE | 2020-07-20 12:02 | ER Document Report ---
ED Medical Screen (RME) - General Stated Complaint: WEAKNESS/LEG PAIN Time Seen by Provider: 07/20/20 11:55 Primary Care Provider: VIRAJ WHATLEY MD [Primary Care Provider] - Follow up as needed Notes: HPI: 69-year-old female presenting with left leg weakness numbness and tingling. Patient states that she does not have back pain no incontinence of urine or bowel. Patient states she had been having problems with her left hip and went to see an arthritis doctor in [place] who gave her a deep injection around the left hip region. Patient states since that time a month ago she has had daily numbness and tingling radiating down the leg with a sensation of feeling like her leg was going to "go out on me". Reports that they did not put her on any pain medication. Patient has since followed up with [facility] who did an x-ray of the hip apparently that showed arthritis and I put her on Flexeril and Toradol which is not helping. She has not followed back up with the arthritic doctor, an orthopedic doctor or other primary care provider for evaluation of her symptoms. Patient states she has an implant in the right hip so cannot have MRI PHYSICAL EXAMINATION: Limited exam by positioning in triage. Subjective num bness tingling in the lateral thigh and foot on palpation of the left leg I have greeted and performed a rapid initial assessment of this patient. A comprehensive ED assessment and evaluation of the patient, analysis of test results and completion of medical decision making process will be conducted by an additional ED providers. TRAVEL OUTSIDE OF THE [place] IN LAST 30 DAYS: No - Related Data Allergies/Adverse Reactions: morphine [Morphine] Allergy (Severe, Verified 07/20/20 11:54) Hives Past Medical History - Past Medical History Cardiac Medical History: Reports: Hx Hypercholesterolemia, Hx Hypertension Denies: Hx Coronary Artery Disease, Hx Heart Attack Pulmonary Medical History: Reports: Hx Asthma - "years ago", Hx Bronchitis, Hx Pneumonia Denies: Hx COPD Neurological Medical History: Denies: Hx Cerebrovascular Accident, Hx Seizures Renal/ Medical History: Denies: Hx Peritoneal Dialysis GI Medical History: Denies: Hx Hepatitis, Hx Hiatal Hernia, Hx Ulcer Musculoskeltal Medical History: Reports Hx Arthritis Psychiatric Medical History: Reports: Hx Depression Infectious Medical History: Denies: Hx Hepatitis Past Surgical History: Reports: Hx Appendectomy, Hx Cholecystectomy, Hx Hysterectomy, Hx Open Heart Surgery - HEART CATH. Denies: Hx Mastectomy, Hx Pacemaker - Immunizations Hx Diphtheria, Pertussis, Tetanus Vaccination: Yes Physical Exam - Vital signs Vitals: Temp Pulse Resp BP Pulse Ox 98.3 F 79 20 165/77 H 99 07/20/20 11:43 07/20/20 11:43 07/20/20 11:43 07/20/20 11:43 07/20/20 11:43 Course - Vital Signs Vital signs: Temp Pulse Resp BP Pulse Ox 98.3 F 79 20 165/77 H 99 07/20/20 11:43 07/20/20 11:43 07/20/20 11:43 07/20/20 11:43 07/20/20 11:43 Doctor's Discharge - Discharge Referrals: VIRAJ WHATLEY MD [Primary Care Provider] - Follow up as needed
--- NOTE | 2020-07-20 12:33 | RADIOLOGY REPORT (SQ) ---
EXAM DESCRIPTION: HIP LEFT AP/LATERAL IMAGES COMPLETED DATE/TIME: 07/20/2020 12:17 pm REASON FOR STUDY: pain COMPARISON: None. NUMBER OF VIEWS: Two views. TECHNIQUE: AP pelvis and additional frog legview of the left hip. LIMITATIONS: None. FINDINGS: MINERALIZATION: Normal. PRIMARY HIP: No fracture or dislocation. No worrisome bone lesions. No contour deformity. No joint space narrowing. OPPOSITE HIP: No fracture or dislocation. No worrisome bone lesions. Limited views. PUBIS AND ISCHIUM: No fracture. PELVIS: No fracture. SACRUM: No fracture or dislocation. No worrisome bone lesions. LOWER LUMBAR SPINE: Degenerative disc disease. SOFT TISSUES: No findings. OTHER: Pelvic nerve stimulator device. IMPRESSION: No acute findings. TECHNICAL DOCUMENTATION: JOB ID: [id number] [place]-72 2010 [employer]- All Rights Reserved Reading location - IP/workstation name: [email or web address]
--- NOTE | 2020-07-20 12:35 | RADIOLOGY REPORT (SQ) ---
EXAM DESCRIPTION: L SPINE WHOLE IMAGES COMPLETED DATE/TIME: 07/20/2020 12:17 pm REASON FOR STUDY: left hip pain leg numbness COMPARISON: 06/28/2019 NUMBER OF VIEWS: Five views including obliques. TECHNIQUE: AP, lateral, oblique, and sacral radiographic images acquired of the lumbar spine. LIMITATIONS: None. FINDINGS: MINERALIZATION: Normal. SEGMENTATION: Normal. No transitional anatomy. ALIGNMENT: Normal. VERTEBRAE: Maintained height. No fracture or worrisome bone lesion. DISCS: Multilevel disc space narrowing with osteophytes. POSTERIOR ELEMENTS: Pedicles and facets are intact. No pars defect or posterior arch defects. Facet arthropathy is present. HARDWARE: Pelvic nerve stimulator. PARASPINAL SOFT TISSUES: Normal. PELVIS: Intact as visualized. No fractures or worrisome bone lesions. SI joints intact. OTHER: No other significant finding. IMPRESSION: SPONDYLOSIS WITHOUT BONE LESION OR FRACTURE. TECHNICAL DOCUMENTATION: JOB ID: [id number] [place]-72 2010 [employer]- All Rights Reserved Reading location - IP/workstation name: [email or web address]
[2020-07-20] MEDS ORDERED: ONDANSETRON HCL INJ/PF 4 MG/2 ML SDV IV ONE (12:38)
[2020-07-20 14:14] LABS: ABSOLUTE EOSINOPHILS # (AUTO) 0.1 10^3/uL (0.0-0.6); ABSOLUTE LYMPHOCYTES (AUTO) 2.4 10^3/uL (0.5-4.7); ABSOLUTE MONOCYTES (AUTO) 0.6 10^3/uL (0.1-1.4); ABSOLUTE NEUT (AUTO) 4.3 10^3/uL (1.7-8.2); BASOPHILS % (AUTO) 0.5 % (0-2); HEMATOCRIT 38.1 % (36.0-47.0); HEMOGLOBIN 13.3 g/dL (12.0-15.5); LYMPHOCYTES % (AUTO) 32.2 % (13-45); MEAN CORPUSCULAR HEMOGLOBIN 31.4 pg (27.0-33.4); MEAN CORPUSCULAR HGB CONC 34.9 g/dL (32.0-36.0); MEAN CORPUSCULAR VOLUME 90 fl (80-97); MONOCYTES % (AUTO) 8.3 % (3-13); PLATELET COUNT 285 10^3/uL (150-450); RED BLOOD COUNT 4.24 10^6/uL (3.72-5.28); RED CELL DISTRIBUTION WIDTH 13.8 % (11.5-14.0); TOTAL CELLS COUNTED % (AUTO) 100 %; WHITE BLOOD COUNT 7.5 10^3/uL (4.0-10.5)
[2020-07-20 14:23] LABS: ALBUMIN 3.6 g/dL (3.5-5.0); ALKALINE PHOSPHATASE 93 U/L (38-126); ANION GAP 7 (5-19); ASPARTATE AMINO TRANSFERASE 34 U/L (14-36); BILIRUBIN,DIRECT 0.2 mg/dL (0.0-0.4); BILIRUBIN,TOTAL 0.5 mg/dL (0.2-1.3); BLOOD UREA NITROGEN 17 mg/dL (7-20); CALCIUM 8.4 mg/dL (8.4-10.2); CARBON DIOXIDE 27 mmol/L (22-30); CHLORIDE 104 mmol/L (98-107); GLUCOSE 114 mg/dL (75-110); POTASSIUM 4.6 mmol/L (3.6-5.0); TOTAL PROTEIN 6.4 g/dL (6.3-8.2)
--- NOTE | 2020-07-20 15:09 | RADIOLOGY REPORT (SQ) ---
EXAM DESCRIPTION: CT PELVIS WITHOUT IMAGES COMPLETED DATE/TIME: 07/20/2020 2:30 pm REASON FOR STUDY: left hip pain COMPARISON: 07/13/2010 TECHNIQUE: CT scan of the pelvis performed without intravenous or oral contrast. Images reviewed wi th soft tissue and bone windows. Reconstructed coronal and sagittal MPR images reviewed. All images stored on PACS. All CT scanners at this facility use dose modulation, iterative reconstruction, and/or weight based d osing when appropriate to reduce radiation dose to as low as reasonably achievable (ALARA). [facility]: Dose Right [facility]: CareDose [facility]: Dose Right [facility]: Teradose 4D [facility]: [employer] RADIATION DOSE: CT Rad equipment meets quality standard of care and radiation dose reduction techniq ues were employed. CTDIvol: 43.2 mGy. DLP: 1181 mGy-cm. mGy. LIMITATIONS: None. FINDINGS: PELVIC BONES: No acute fracture. No worrisome bone lesions. VISUALIZED SPINE: No acute findings. HIP(S): No acute fracture or dislocation. No worrisome bone lesions. PELVIC SOFT TISSUES: No acute findings. EXTRAPELVIC SOFT TISSUES: No acute findings. OTHER: No other significant finding. IMPRESSION: NO ACUTE FINDINGS. TECHNICAL DOCUMENTATION: JOB ID: [id number] [place]-72 Quality ID # 436: Final reports with documentation of one or more dose reduction techniques (e.g., Au tomated exposure control, adjustment of the mA and/or kV according to patient size, use of iterative reconstruction technique) 2010 [employer]- All Rights Reserved Reading location - IP/workstation name: [email or web address]
--- NOTE | 2020-07-20 15:11 | RADIOLOGY REPORT (SQ) ---
EXAM DESCRIPTION: CT LUMBAR SPINE WITHOUT IMAGES COMPLETED DATE/TIME: 07/20/2020 2:29 pm REASON FOR STUDY: left sided radiculopathy COMPARISON: None. TECHNIQUE: Axial images acquired through the lumbar spine without intravenous contrast. Images revie wed with lung, soft tissue and bone windows. Reconstructed coronal and sagittal MPR images reviewed. Images stored on PACS. All CT scanners at this facility use dose modulation, iterative reconstruction, and/or weight based d osing when appropriate to reduce radiation dose to as low as reasonably achievable (ALARA). [facility]: Dose Right [facility]: CareDose [facility]: Dose Right [facility]: Teradose 4D [facility]: [employer] RADIATION DOSE: mGy. LIMITATIONS: None. FINDINGS: SOFT TISSUES: No soft tissue swelling. No masses. SEGMENTATION: Normal. No transitional anatomy. ALIGNMENT: Normal. VERTEBRAL BODIES: No fractures. No dislocation. No acute findings. Mild scattered degenerative changes. PEDICLES, TRANSVERSE PROCESSES: No fractures. No dislocation. No acute findings. FACETS, POSTERIOR ELEMENTS: No fractures. No dislocation. Moderate -severe arthrosis at the L4-5 and L5-S1 levels. HARDWARE: Sacral nerve stimulator device. VISUALIZED RIBS: No fractures. OTHER: No other significant finding. IMPRESSION: DEGENERATIVE CHANGES IN THE LUMBAR SPINE WITHOUT ACUTE FRACTURE OR DISLOCATION. TECHNICAL DOCUMENTATION: JOB ID: [id number] [place]-72 Quality ID # 436: Final reports with documentation of one or more dose reduction techniques (e.g., Au tomated exposure control, adjustment of the mA and/or kV according to patient size, use of iterative reconstruction technique) 2010 [employer]- All Rights Reserved Reading location - IP/workstation name: [email or web address]
--- NOTE | 2020-07-20 16:09 | ER Document Report ---
Entered by ENEDELIA HUI SCRIBE 07/20/20 1329 Acting as scribe for:VIKAS ALMENDAREZ MD ED Extremity Problem, Lower - General Chief Complaint: Leg Pain Stated Complaint: WEAKNESS/LEG PAIN Time Seen by Provider: 07/20/20 11:55 Primary Care Provider: VIRAJ WHATLEY MD [Primary Care Provider] - Follow up as needed Mode of Arrival: Ambulatory Information source: Patient Notes: This 69 year old female patient presents to the ED today for evaluation of LLE pain and weakness that started x1 month ago. 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 Cherry in [place] and received a deep steroid injection in that area. She reports severe pain from that area down to her foot since that injection and states that her LLE feels weak, like "its going to quit on me." Denies any back pain or change in bowel/bladder habits. She notes that she is able to ambulate without assistance. TRAVEL OUTSIDE OF THE [place] IN LAST 30 DAYS: No - Related Data Allergies/Adverse Reactions: morphine [Morphine] Allergy (Severe, Verified 07/20/20 11:54) Hives Past Medical History - General Information source: Patient, [facility] Records - Social History Smoking Status: Never Smoker Cigarette use (# per day): No Chew tobacco use (# tins/day): No Smoking Education Provided: No Lives with: Spouse/Significant other Family History: Reviewed & Not Pertinent Patient has suicidal ideation: No Patient has homicidal ideation: No - Past Medical History Cardiac Medical History: Reports: Hx Hypercholesterolemia, Hx Hypertension Pulmonary Medical History: Reports: Hx Asthma - "years ago", Hx Bronchitis, Hx Pneumonia Musculoskeletal Medical History: Reports Hx Arthritis Psychiatric Medical History: Reports: Hx Depression Past Surgical History: Reports: Hx Appendectomy, Hx Cardiac Catheterization, Hx Cholecystectomy, Hx Hysterectomy - Immunizations Hx Diphtheria, Pertussis, Tetanus Vaccination: Yes Hx Pneumococcal Vaccination: 10/10/17 Review of Systems - Review of Systems Constitutional: No symptoms reported EENT: No symptoms reported Cardiovascular: No symptoms reported Respiratory: No symptoms reported Gastrointestinal: See HPI. denies: Fecal incontinence Genitourinary: See HPI. denies: Incontinence Female Genitourinary: No symptoms reported Musculoskeletal: See HPI, Joint pain, Muscle pain. denies: Back pain Skin: No symptoms reported Hematologic/Lymphatic: No symptoms reported Neurological/Psychological: No symptoms reported -: Yes All other systems reviewed and negative Physical Exam - Vital signs Vitals: Temp Pulse Resp BP Pulse Ox 98.3 F 79 20 165/77 H 99 07/20/20 11:43 07/20/20 11:43 07/20/20 11:43 07/20/20 11:43 07/20/20 11:43 - General General appearance: Alert In distress: None - HEENT Head: Normocephalic, Atraumatic Eyes: Normal Pupils: PERRL - Respiratory Respiratory status: No respiratory distress Chest status: Nontender Breath sounds: Normal Chest palpation: Normal - Cardiovascular Rhythm: Regular Heart sounds: Normal auscultation Murmur: No Friction rub: No Gallop: None auscultated - Abdominal Inspection: Normal Distension: No distension Bowel sounds: Normal Tenderness: Nontender - Abdomen soft Organomegaly: No organomegaly - Back Back: Normal, Nontender - Extremities General upper extremity: Normal inspection General lower extremity: Other - Tenderness to palpation of the left buttocks region. No: Edema Hip: No: Deformity - Crepitus, Instability, Pain with ROM Knee: No: Tender, Deformity - Crepitus, Ecchymosis, Pain with ROM Calf: Nontender - Neurological Neuro grossly intact: Yes Orientation: AAOx4 Patricia Coma Scale Eye Opening: Spontaneous Patricia Coma Scale Verbal: Oriented Patricia Coma Scale Motor: Obeys Commands [place] Coma Scale Total: 15 - Psychological Associated symptoms: Normal affect, Normal mood - Skin Skin Temperature: Warm Skin Moisture: Dry Skin Color: Normal Course - Re-evaluation Re-evalutation: 07/20/20 16:01 Patient reports her pain in her left hip has resolved. Patient did receive IV Toradol, IV Decadron, and p.o. Zofran and Percocet.. - Vital Signs Vital signs: Temp Pulse Resp BP Pulse Ox 98.3 F 79 20 165/77 H 99 07/20/20 11:43 07/20/20 11:43 07/20/20 11:43 07/20/20 11:43 07/20/20 11:43 07/20/20 16:02 Vital signs stable. Patient's blood pressure is 165/77 however. Patient was in pain at that time. - Laboratory Result Diagrams: 07/20/20 13:32 07/20/20 13:32 Laboratory results interpreted by me: 07/20/20 13:32 Glucose 114 H ALT 37 H Patient's laboratory results are unremarkable except for glucose of 114 and ALT of 37. 07/20/20 16:03 both results unremarkable insignificant. - Diagnostic Test Radiology reviewed: Image reviewed, Reports reviewed Radiology results interpreted by me: 07/20/20 15:15 Hip X-Ray 07/20/20 11:59 IMPRESSION: No acute findings. Lumbar Spine X-Ray 07/20/20 11:59 IMPRESSION: SPONDYLOSIS WITHOUT BONE LESION OR FRACTURE. Lumbar Spine CT 07/20/20 13:26 IMPRESSION: DEGENERATIVE CHANGES IN THE LUMBAR SPINE WITHOUT ACUTE FRACTURE OR DISLOCATION. Pelvis CT 07/20/20 13:27 IMPRESSION: NO ACUTE FINDINGS. 07/20/20 16:03 Imaging of patient during this ED stay shows hip x-ray no acute findings lumbar spine x-ray spondylosis without bone lesion or fracture, degenerative changes of the lumbar spine noted on lumbar spine CT. And pelvic CT showed no acute findings. Discharge - Discharge Clinical Impression: Left hip pain Condition: Stable Disposition: HOME, SELF-CARE Additional Instructions: Today you complained of left hip pain that is been present for 4 weeks. You have received an IM injection by 1 of your primary care providers. Despite that injection you mention the pain actually worsened since then. Today's visit shows negative hip fractures or any bony lesions or any soft tissue lesions noted on CT scan of pelvis and LS-spine. The LS-spine does show that there is spondylosis which is weakening in the ligaments in the lower lumbar spine without any fractures. We are placing you on Percocet and Zofran for a few days along with a Medrol Dosepak to allow you to continue your improvement that you have at this time. Please follow-up with your primary care physician for further evaluation. Prescriptions: Oxycodone HCl/Acetaminophen [Percocet 5-325 mg Tablet] 1 tab PO Q6H PRN 2 Days #8 tab PRN Reason: pain Ondansetron [Zofran Odt 4 mg Tablet] 1 - 2 tab PO Q4H PRN #15 tab.rapdis PRN Reason: For Nausea/Vomiting Referrals: VIRAJ WHATLEY MD [Primary Care Provider] - Follow up as needed I personally performed the services described in the documentation, reviewed and edited the documentation which was dictated to the scribe in my presence, and it accurately records my words and actions.
[2020-07-20 16:48] VITALS: BP 156/71
== END 2020-07-20 16:48 | disposition home or self-care (01) ==
LOC: ER 11:33
DX: M25.552 Pain in left hip (principal); M47.816 Spondylosis without myelopathy or radiculopathy, lumbar region; R53.1 Weakness; M79.10 Myalgia, unspecified site; I10 Essential (primary) hypertension; J45.909 Unspecified asthma, uncomplicated; Z88.6 Allergy status to analgesic agent; Z88.5 Allergy status to narcotic agent
CPT/HCPCS: 99285; 96374; 96375; 36415; 85025; 80053; 73502; 72110; 72131; 72192; J1885; A9270; J2405; J1100

== ENCOUNTER 2020-09-07 15:45 | Emergency (ER) | payer MEDICARE ==
[2020-09-07] MEDS ORDERED: NORMAL SALINE 1000 ML 1,000 ML IV ONE (16:29)
--- NOTE | 2020-09-07 16:31 | ER Document Report ---
ED Medical Screen (RME) - General Chief Complaint: Fever Stated Complaint: COUGH,FEVER,NO TASTE/SMELL Time Seen by Provider: 09/07/20 16:22 Primary Care Provider: VIRAJ WHATLEY MD [Primary Care Provider] - Follow up as needed Mode of Arrival: Wheelchair Information source: Patient Notes: 69-year-old female presents to ED for complaint of cough congestion body aches fever of 101 at home took Tylenol 650 and then came to the emergency room. She states she is also got nausea and a headache and she is worried that she is got the Covid. She states she does not smoke drink or use any illicit drugs. She states she does have blood pressure and cholesterol and asthma. I have ordered all the Covid testing flu strep chest x-ray as well as venous blood gas and Accu-Chek because she states she has been extremely thirsty. She states she does not have a history of diabetes but this is a concern. I have greeted and performed a rapid initial assessment of this patient. A comprehensive ED assessment and evaluation of the patient, analysis of test results and completion of medical decision making process will be conducted by an additional ED providers. TRAVEL OUTSIDE OF THE [place] IN LAST 30 DAYS: No - Related Data Allergies/Adverse Reactions: morphine [Morphine] Allergy (Severe, Verified 07/20/20 11:54) Hives Past Medical History - Past Medical History Cardiac Medical History: Reports: Hx Hypercholesterolemia, Hx Hypertension Denies: Hx Coronary Artery Disease, Hx Heart Attack Pulmonary Medical History: Reports: Hx Asthma - "years ago", Hx Bronchitis, Hx Pneumonia Denies: Hx COPD Neurological Medical History: Denies: Hx Cerebrovascular Accident, Hx Seizures Renal/ Medical History: Denies: Hx Peritoneal Dialysis GI Medical History: Denies: Hx Hepatitis, Hx Hiatal Hernia, Hx Ulcer Musculoskeltal Medical History: Reports Hx Arthritis Psychiatric Medical History: Reports: Hx Depression Infectious Medical History: Denies: Hx Hepatitis Past Surgical History: Reports: Hx Appendectomy, Hx Cardiac Catheterization, Hx Cholecystectomy, Hx Hysterectomy, Hx Open Heart Surgery - HEART CATH. Denies: Hx Mastectomy, Hx Pacemaker - Immunizations Hx Diphtheria, Pertussis, Tetanus Vaccination: Yes Physical Exam - Vital signs Vitals: Temp Pulse Resp BP Pulse Ox 100.4 F 87 18 185/65 H 94 09/07/20 15:57 09/07/20 15:57 09/07/20 15:57 09/07/20 15:57 09/07/20 15:57 Course - Vital Signs Vital signs: Temp Pulse Resp BP Pulse Ox 100.4 F 87 18 185/65 H 94 09/07/20 15:57 09/07/20 15:57 09/07/20 15:57 09/07/20 15:57 09/07/20 15:57 Doctor's Discharge - Discharge Referrals: VIRAJ WHATLEY MD [Primary Care Provider] - Follow up as needed
--- NOTE | 2020-09-07 16:48 | RADIOLOGY REPORT (SQ) ---
EXAM DESCRIPTION: CHEST SINGLE VIEW IMAGES COMPLETED DATE/TIME: 09/07/2020 4:40 pm REASON FOR STUDY: Cough congestion fever body aches COMPARISON: 12/21/2018 EXAM PARAMETERS: NUMBER OF VIEWS: One view. TECHNIQUE: Single frontal radiographic view of the chest acquired. RADIATION DOSE: NA LIMITATIONS: None. FINDINGS: LUNGS AND PLEURA: No opacities, masses or pneumothorax. No pleural effusion. MEDIASTINUM AND HILAR STRUCTURES: No masses. Contour normal. HEART AND VASCULAR STRUCTURES: Heart normal in size. Normal vasculature. BONES: No acute findings. HARDWARE: None in the chest. OTHER: No other significant finding. IMPRESSION: NO ACUTE RADIOGRAPHIC FINDING IN THE CHEST. TECHNICAL DOCUMENTATION: JOB ID: [id number] 2010 [employer]- All Rights Reserved Reading location - IP/workstation name: [email or web address]
[2020-09-07 17:30] LABS: ABSOLUTE LYMPHOCYTES (AUTO) 2.1 10^3/uL (0.5-4.7); ABSOLUTE MONOCYTES (AUTO) 0.6 10^3/uL (0.1-1.4); ABSOLUTE NEUT (AUTO) 4.8 10^3/uL (1.7-8.2); BASOPHILS % (AUTO) 0.5 % (0-2); EOSINOPHILS % (AUTO) 0.1 % (0-6); HEMOGLOBIN 12.8 g/dL (12.0-15.5); LYMPHOCYTES % (AUTO) 27.7 % (13-45); MEAN CORPUSCULAR HEMOGLOBIN 30.8 pg (27.0-33.4); MEAN CORPUSCULAR HGB CONC 34.6 g/dL (32.0-36.0); MEAN CORPUSCULAR VOLUME 89 fl (80-97); MONOCYTES % (AUTO) 7.8 % (3-13); PLATELET COUNT 201 10^3/uL (150-450); RED BLOOD COUNT 4.15 10^6/uL (3.72-5.28); RED CELL DISTRIBUTION WIDTH 13.7 % (11.5-14.0); SEGMENTED NEUTROPHILS % (AUTO) 63.9 % (42-78); TOTAL CELLS COUNTED % (AUTO) 100 %; VENOUS BLOOD BASE EXCESS 0.9 mmol/L; VENOUS BLOOD PCO2 42.9 mmHg (35-63); VENOUS BLOOD PH 7.4 (7.30-7.42); WHITE BLOOD COUNT 7.5 10^3/uL (4.0-10.5)
[2020-09-07 17:49] LABS: ALBUMIN 3.6 g/dL (3.5-5.0); ALKALINE PHOSPHATASE 133 U/L (38-126); ANION GAP 8 (5-19); ASPARTATE AMINO TRANSFERASE 51 U/L (14-36); BILIRUBIN,DIRECT 0.2 mg/dL (0.0-0.4); BILIRUBIN,TOTAL 0.5 mg/dL (0.2-1.3); BLOOD UREA NITROGEN 13 mg/dL (7-20); CALCIUM 8.2 mg/dL (8.4-10.2); CARBON DIOXIDE 28 mmol/L (22-30); CHLORIDE 101 mmol/L (98-107); GLUCOSE 107 mg/dL (75-110); POTASSIUM 3.6 mmol/L (3.6-5.0); TOTAL PROTEIN 6.4 g/dL (6.3-8.2)
[2020-09-07 17:53] LABS: A TYPE INFLUENZA AG NEGATIVE (NEGATIVE); B INFLUENZA AG NEGATIVE (NEGATIVE)
[2020-09-07 18:08] LABS: APPEARANCE,URINE CLEAR; BILIRUBIN,URINE NEGATIVE (NEGATIVE); COLOR,URINE YELLOW; GLUCOSE, URINE NEGATIVE (NEGATIVE); KETONES,URINE NEGATIVE (NEGATIVE); LEUKOCYTE ESTERASE,URINE LARGE (NEGATIVE); NITRITE,URINE NEGATIVE (NEGATIVE); PROTEIN,URINE NEGATIVE (NEGATIVE); URINE SPECIFIC GRAVITY 1.015; UROBILINOGEN,URINE NEGATIVE mg/dL (<2.0)
--- NOTE | 2020-09-07 18:19 | ER Document Report ---
ED General - General Chief Complaint: Fever Stated Complaint: COUGH,FEVER,NO TASTE/SMELL Time Seen by Provider: 09/07/20 16:22 Primary Care Provider: VIRAJ WHATLEY MD [Primary Care Provider] - Follow up as needed Mode of Arrival: Wheelchair Information source: Patient Notes: She presents to the ER for evaluation of dry cough, postnasal drainage, generalized fatigue, body aches, chills, fever x3 days. The patient states she is also lost taste and smell. She denies chest pain. She states that she feels as though she might feel some shortness of breath with physical activity but nothing overly noticeable. She has no known exposures to COVID-19. Nursing notes reviewed and past medical, social, and family histories reviewed and validated. TRAVEL OUTSIDE OF THE [place] IN LAST 30 DAYS: No - Related Data Allergies/Adverse Reactions: morphine [Morphine] Allergy (Severe, Verified 09/07/20 17:25) Hives Past Medical History - General Information source: Patient - Social History Smoking Status: Never Smoker Chew tobacco use (# tins/day): No Frequency of alcohol use: None Drug Abuse: None Lives with: Family Family History: Reviewed & Not Pertinent Patient has suicidal ideation: No Patient has homicidal ideation: No - Past Medical History Cardiac Medical History: Reports: Hx Hypercholesterolemia, Hx Hypertension Denies: Hx Coronary Artery Disease, Hx Heart Attack Pulmonary Medical History: Reports: Hx Asthma - "years ago", Hx Bronchitis, Hx Pneumonia Denies: Hx COPD EENT Medical History: Reports: None Neurological Medical History: Denies: Hx Cerebrovascular Accident, Hx Seizures Endocrine Medical History: Reports: None Renal/ Medical History: Denies: Hx Peritoneal Dialysis Malignancy Medical History: Reports: None GI Medical History: Denies: Hx Hepatitis, Hx Hiatal Hernia, Hx Ulcer Musculoskeletal Medical History: Reports Hx Arthritis Skin Medical History: Reports None Psychiatric Medical History: Reports: Hx Depression Traumatic Medical History: Reports: None Infectious Medical History: Denies: Hx Hepatitis Past Surgical History: Reports: Hx Appendectomy, Hx Cardiac Catheterization, Hx Cholecystectomy, Hx Hysterectomy, Hx Open Heart Surgery - HEART CATH. Denies: Hx Mastectomy, Hx Pacemaker - Immunizations Immunizations up to date: Yes Hx Diphtheria, Pertussis, Tetanus Vaccination: Yes Hx Pneumococcal Vaccination: 10/10/17 Review of Systems - Review of Systems Notes: Constitutional: Audited for fever. HENT: For sore throat. Eyes: Negative for visual changes. Cardiovascular: Negative for chest pain. Respiratory: Positive for cough. Gastrointestinal: Negative for abdominal pain, vomiting or diarrhea. Genitourinary: Negative for dysuria. Musculoskeletal: Negative for back pain. Skin: Negative for rash. Neurological: Negative for headaches, weakness or numbness. 10 point ROS negative except as marked above and in HPI. Physical Exam - Vital signs Vitals: Temp Pulse Resp BP Pulse Ox 100.4 F 87 18 185/65 H 94 09/07/20 15:57 09/07/20 15:57 09/07/20 15:57 09/07/20 15:57 09/07/20 15:57 - Notes Notes: CONSTITUTIONAL: Well appearing. No acute distress. SKIN: Warm, dry, and intact without rash EYES: Extraocular movements are grossly intact, clear conjunctiva HENT: Normocephalic, atraumatic, moist mucus membranes NECK: No obvious swelling, normal range of motion PULMONARY: Normal chest rise and fall. Breath sounds clear and equal bilaterally. No respiratory distress or stridor CARDIOVASCULAR: Regular rate. No murmurs, rubs, gallops. Distal extremities are warm and well perfused. ABDOMINAL: Abdomen is soft. The patient is obese. NEUROLOGIC: Normal speech, moves all extremities. MUSCULOSKELETAL: No gross deformities, atraumatic PSYCHIATRIC: Normal mood and affect Course - Re-evaluation Re-evalutation: 09/07/20 19:49 Rechecked patient who has responded well to treatment in the ER. Discussed with patient: results, diagnosis, treatment plan, and need for follow-up. Return to the emergency department warnings were given. All questions and concerns were addressed. The plan is agreed with and understood. Patient is stable and ready for discharge. - Vital Signs Vital signs: Temp Pulse Resp BP Pulse Ox 100.4 F 87 21 H 191/66 H 98 09/07/20 15:57 09/07/20 15:57 09/07/20 19:00 09/07/20 18:01 09/07/20 18:01 - Laboratory Result Diagrams: 09/07/20 16:59 09/07/20 16:59 Laboratory results interpreted by me: 09/07/20 09/07/20 09/07/20 16:52 16:59 17:38 Sodium 136.5 L POC Glucose 115 H Calcium 8.2 L AST 51 H ALT 50 H Alkaline Phosphatase 133 H Urine Blood SMALL H Ur Leukocyte Esterase LARGE H - Diagnostic Test Radiology reviewed: Reports reviewed Discharge - Discharge Clinical Impression: Viral upper respiratory tract infection with cough Condition: Good Disposition: HOME, SELF-CARE Instructions: COVID-19 Guidance for Persons Under Investigation, Upper Respiratory Illness ([facility]) Additional Instructions: Sure to return to the emergency room if your symptoms change or worsen. Referrals: VIRAJ WHATLEY MD [Primary Care Provider] - Follow up as needed
[2020-09-07] MEDS ORDERED: ONDANSETRON ODT 4 MG TAB (6 TAB/ER DISP) PO PRN (19:19)
[2020-09-07 19:23] VITALS: BP 191/66
== END 2020-09-07 19:23 | disposition home or self-care (01) ==
LOC: ER 15:45
DX: U07.1 COVID-19 (principal); J06.9 Acute upper respiratory infection, unspecified; R50.9 Fever, unspecified; M79.10 Myalgia, unspecified site; E78.00 Pure hypercholesterolemia, unspecified; I10 Essential (primary) hypertension; Z88.6 Allergy status to analgesic agent; Z90.49 Acquired absence of other specified parts of digestive tract; Z90.710 Acquired absence of both cervix and uterus
CPT/HCPCS: 99284; 96360; 96361; 36415; 87070; 87086; 87880; 82962; 85025; 87088; 80053; 81001; 84484; 87186; 82803; 87804; 71045; U0003; J7030; A9270; C9803; 87635

== ENCOUNTER 2020-09-15 09:23 | Inpatient (IN) | payer MEDICARE ==
--- NOTE | 2020-09-15 10:50 | RADIOLOGY REPORT (SQ) ---
EXAM DESCRIPTION: CHEST SINGLE VIEW IMAGES COMPLETED DATE/TIME: 09/15/2020 10:38 am REASON FOR STUDY: bed 5 sepsis protocol COMPARISON: AP view of the chest from 09/07/2020. EXAM PARAMETERS: NUMBER OF VIEWS: One view. TECHNIQUE: An AP view of the chest was obtained. RADIATION DOSE: NA LIMITATIONS: None. FINDINGS: LUNGS AND PLEURA: Bilateral patchy parenchymal opacities in a peripheral distribution. Th ere is no sizable pleural effusion or pneumothorax. MEDIASTINUM AND HILAR STRUCTURES: No mediastinal or hilar contour abnormality. HEART AND VASCULAR STRUCTURES: The cardiac silhouette is enlarged. BONES: No acute findings. HARDWARE: None in the chest. OTHER: No other finding. IMPRESSION: Cardiomegaly and bilateral patchy parenchymal opacities in a peribronchial distribution. Differential considerations include pulmonary edema multifocal pneumonia. TECHNICAL DOCUMENTATION: JOB ID: [id number] 2010 [employer]- All Rights Reserved Reading location - IP/workstation name: [email or web address]
[2020-09-15 11:13] LABS: VENOUS BLOOD BASE EXCESS 1.1 mmol/L; VENOUS BLOOD HCO3 25.5 mmol/L (20-32); VENOUS BLOOD PCO2 40.2 mmHg (35-63); VENOUS BLOOD PH 7.42 (7.30-7.42)
[2020-09-15 11:20] LABS: ABSOLUTE LYMPHOCYTES (AUTO) 1.3 10^3/uL (0.5-4.7); ABSOLUTE MONOCYTES (AUTO) 0.4 10^3/uL (0.1-1.4); ABSOLUTE NEUT (AUTO) 5.6 10^3/uL (1.7-8.2); BASOPHILS % (AUTO) 0.1 % (0-2); EOSINOPHILS % (AUTO) 0.4 % (0-6); HEMATOCRIT 32.3 % (36.0-47.0); HEMOGLOBIN 11.3 g/dL (12.0-15.5); LYMPHOCYTES % (AUTO) 17.4 % (13-45); MEAN CORPUSCULAR HGB CONC 34.9 g/dL (32.0-36.0); MEAN CORPUSCULAR VOLUME 89 fl (80-97); MONOCYTES % (AUTO) 6.1 % (3-13); PLATELET COUNT 318 10^3/uL (150-450); RED BLOOD COUNT 3.63 10^6/uL (3.72-5.28); RED CELL DISTRIBUTION WIDTH 13.7 % (11.5-14.0); TOTAL CELLS COUNTED % (AUTO) 100 %; WHITE BLOOD COUNT 7.3 10^3/uL (4.0-10.5)
[2020-09-15 11:44] LABS: INTERNATIONAL RATION (INR) 0.97; PROTHROMBIN TIME 13.1 SEC (11.4-15.4)
[2020-09-15 12:11] LABS: ALBUMIN 3.4 g/dL (3.5-5.0); ALKALINE PHOSPHATASE 200 U/L (38-126); ANION GAP 6 (5-19); ASPARTATE AMINO TRANSFERASE 69 U/L (14-36); BILIRUBIN,DIRECT 0.3 mg/dL (0.0-0.4); BILIRUBIN,TOTAL 0.6 mg/dL (0.2-1.3); BLOOD UREA NITROGEN 9 mg/dL (7-20); CALCIUM 8.3 mg/dL (8.4-10.2); CARBON DIOXIDE 30 mmol/L (22-30); CHLORIDE 101 mmol/L (98-107); GLUCOSE 203 mg/dL (75-110); POTASSIUM 3.8 mmol/L (3.6-5.0); TOTAL PROTEIN 6.9 g/dL (6.3-8.2)
[2020-09-15] MEDS ORDERED: DEXAMETHASONE SOD PHOS INJ 10 MG/1 ML VIAL IV ONE (12:25)
[2020-09-15] MEDS ORDERED: LORAZEPAM 0.5 MG TABLET PO ONE (12:26)
[2020-09-15] MEDS ORDERED: NORMAL SALINE 500 ML IV ONE (12:26)
--- NOTE | 2020-09-15 12:34 | ER Document Report ---
ED General - General Chief Complaint: Shortness Of Breath Stated Complaint: SHORT OF BREATH,LEFT LEG PAIN Time Seen by Provider: 09/15/20 12:04 TRAVEL OUTSIDE OF THE [place] IN LAST 30 DAYS: No - HPI Notes: Patient is a 69-year-old female who presents with shortness of breath. Patient was diagnosed with Covid on 09/07. She was very fatigued and tired but did not develop shortness of breath until yesterday. She states her shortness of breath has worsened. She states she has a cough, nausea, vomiting, diarrhea, loss of taste and smell. She has been taking Tylenol. Patient is very anxious. She had a low-grade fever in triage but stated she took Tylenol this morning. She also was in the 80s on her pulse ox upon arrival on room air. Patient also mentions that she she had a left hip injection 3 months ago. She states that the doctor hit the nerve and she has had pain since then. This is not a new pain. - Related Data Allergies/Adverse Reactions: morphine [Morphine] Allergy (Severe, Verified 09/07/20 17:25) Javi Past Medical History - General Information source: Patient - Social History Smoking Status: Never Smoker Family History: Reviewed & Not Pertinent - Past Medical History Cardiac Medical History: Reports: Hx Hypercholesterolemia, Hx Hypertension Denies: Hx Coronary Artery Disease, Hx Heart Attack Pulmonary Medical History: Reports: Hx Asthma - "years ago", Hx Bronchitis, Hx Pneumonia Denies: Hx COPD Neurological Medical History: Denies: Hx Cerebrovascular Accident, Hx Seizures Renal/ Medical History: Denies: Hx Peritoneal Dialysis GI Medical History: Denies: Hx Hepatitis, Hx Hiatal Hernia, Hx Ulcer Musculoskeletal Medical History: Reports Hx Arthritis Psychiatric Medical History: Reports: Hx Depression Infectious Medical History: Denies: Hx Hepatitis Past Surgical History: Reports: Hx Appendectomy, Hx Cardiac Catheterization, Hx Cholecystectomy, Hx Hysterectomy, Hx Open Heart Surgery - HEART CATH. Denies: Hx Mastectomy, Hx Pacemaker - Immunizations Immunizations up to date: Yes Hx Diphtheria, Pertussis, Tetanus Vaccination: Yes Hx Pneumococcal Vaccination: 10/10/17 Review of Systems - Review of Systems Notes: CONSTITUTIONAL: Positive for fatigue and fever. SKIN: No rash. CARDIOVASCULAR: No chest pain or edema. RESPIRATORY: Positive for cough and shortness of breath. GASTROINTESTINAL: Positive for nausea and vomiting. GENITOURINARY: No dysuria. MUSCULOSKELETAL: Positive for chronic left hip pain. NEUROLOGIC: No seizures. No headache, focal weakness or sensory changes. HEMATOLOGIC: No unusual bruising or bleeding. PSYCHIATRIC: No depression or anxiety. Physical Exam - Vital signs Vitals: Temp Pulse Resp BP Pulse Ox 100.7 F H 91 24 H 176/62 H 87 L 09/15/20 09:32 12 09:32 09/15/20 09:32 09/15/20 09:32 09/15/20 09:32 - General General appearance: Anxious In distress: Mild Notes: VITAL SIGNS: Low-grade fever. Hypoxic on room air. GENERAL: No acute distress, non-toxic appearance. HEAD: Normal with no signs of head trauma. EYES: EOMI, conjunctiva normal, no discharge. EARS: Hearing grossly intact. NOSE: Normal. NECK: Normal range of motion, no tenderness, supple, no lymphadenopathy, No adenopathy, no JVD. CHEST: Coarse lung sounds bilaterally. CARDIAC: Regular rate and rhythm. S1 and S2, without murmurs, gallops, or rubs. VASCULAR: No Edema. ABDOMEN: Normal and soft with no tenderness MUSCULOSKELETAL: Good range of motion of all major joints. Extremities without clubbing, cyanosis or edema. NEUROLOGICAL: Alert and oriented x 3. No focal sensory or strength deficits. Speech normal. Follows commands appropriately. PSYCHIATRIC: Normal Affect, judgement and mood. SKIN: Normal appearance with no rashes or lesions. Course - Re-evaluation Re-evalutation: 09/15/20 12:43 Patient was 87% on room air. She is doing much better on 2 L nasal cannula. Her ABG is unremarkable. Her x-ray today looks much worse than the previous x- ray with patchy infiltrates. I did provide dexamethasone for Covid treatment. The steroid may also help the inflammation at her hip joint. She has full range of motion of her left lower extremity. Patient was also given a small dose of Ativan as she takes it as needed and is very anxious in the ER about her diagnosis and is tearful. I discussed with the hospitalist for admission. 09/15/20 15:06 - Vital Signs Vital signs: Temp Pulse Resp BP Pulse Ox 100.7 F H 91 25 H 155/71 H 92 09/15/20 09:32 09/15/20 09:32 09/15/20 13:33 09/15/20 13:33 09/15/20 13:33 - Laboratory Result Diagrams: 09/15/20 10:45 09/15/20 10:45 Laboratory results interpreted by me: 09/15/20 09/15/20 10:45 10:45 RBC 3.63 L Hgb 11.3 L Hct 32.3 L Glucose 203 H Calcium 8.3 L AST 69 H ALT 46 H Alkaline Phosphatase 200 H Albumin 3.4 L - Diagnostic Test Radiology reviewed: Image reviewed, Reports reviewed - EKG Interpretation by Me EKG shows normal: Sinus rhythm Rate: Normal Rhythm: Torsades When compared to previous EKG there are: Previous EKG unavailable Additional EKG results interpreted by me: 09/15/20 14:30 Sinus rhythm at a rate of 86. QTc 417. Artifact present. No acute ST changes. No significant change from previous EKG. Discharge - Discharge Clinical Impression: COVID-19, Acute respiratory failure due to COVID-19 Condition: Stable Disposition: ADMITTED INPATIENT Admitting Provider: Radha (Hospitalist) Unit Admitted: Medical Floor
[2020-09-15 12:45] LABS: APPEARANCE,URINE CLEAR; BILIRUBIN,URINE NEGATIVE (NEGATIVE); COLOR,URINE YELLOW; GLUCOSE, URINE NEGATIVE (NEGATIVE); KETONES,URINE NEGATIVE (NEGATIVE); LEUKOCYTE ESTERASE,URINE NEGATIVE (NEGATIVE); NITRITE,URINE NEGATIVE (NEGATIVE); PROTEIN,URINE NEGATIVE (NEGATIVE); UROBILINOGEN,URINE NEGATIVE mg/dL (<2.0)
[2020-09-15] MEDS ORDERED: AZITHROMYCIN 250 MG TABLET PO ONE (14:48)
[2020-09-15] MEDS ORDERED: ONDANSETRON HCL INJ/PF 4 MG/2 ML SDV IV PRN (14:48)
[2020-09-15] MEDS ORDERED: MAG HYDROX/AL HYDROX/SIMETH SUSP 30 ML UDCUP PO PRN (14:48)
[2020-09-15] MEDS ORDERED: MECLIZINE HCL 25 MG TABLET PO PRN (15:02)
[2020-09-15] MEDS ORDERED: IVERMECTIN 3 MG TABLET PO SCH (15:15)
--- NOTE | 2020-09-15 15:28 | PDOC H&P ---
History of Present Illness Admission Date/PCP: 09/15/20 12:56 VIRAJ WHATLEY MD Patient complains of: Shortness of breath History of Present Illness: EVERARDO STEPHEN is a 69 year old female with a history of hypertension, hypertriglyceridemia, depression, neuropathy in left leg, who presents to the hospital with complaints of progressive shortness of breath which has been going on over the past several days. She also complains of body aches and fevers. She felt quite breathless today and decided to come in. Of note, she had presented to the hospital ER on 09/07/2020 with complaints of shortness of breath for the pRIOR 3 days as well as fevers. At that time she was tested for COVID-19 which came back positive. She has been discharged home for self- isolation. However at this time she presents hypoxic. Noted to be 87% on room air in the ER. Referred to hospitalist service for admission. She denies any chest pain, diarrhea. Past Medical History Cardiac Medical History: Reports: Hyperlipidema, Hypertension Denies: Coronary Artery Disease, Myocardial Infarction Pulmonary Medical History: Reports: Asthma - "years ago", Bronchitis, Pneumonia Denies: Chronic Obstructive Pulmonary Disease (COPD) Neurological Medical History: Denies: Ischemic CVA, Seizures Endocrine Medical History: Denies: Diabetes Mellitus Type 1, Diabetes Mellitus Type 2 GI Medical History: Denies: Hepatitis, Hiatal Hernia Musculoskeltal Medical History: Reports: Arthritis Psychiatric Medical History: Reports: Depression Hematology: Denies: Anemia - NOT PRESENTLY, Sickle Cell Disease Past Surgical History Past Surgical History: Reports: Appendectomy, Cholecystectomy, Hysterectomy Denies: Amputation, Mastectomy, Pacemaker Social History Information Source: Patient Smoking Status: Never Smoker Frequency of Alcohol Use: None Hx Recreational Drug Use: No Hx Prescription Drug Abuse: No - Advance Directive Resuscitation Status: Full Code Family History Family History: DM, Hypertension Parental Family History Reviewed: Yes Children Family History Reviewed: Yes Sibling(s) Family History Reviewed.: Yes Medication/Allergy Home Medications: Venlafaxine HCl [Effexor 75 mg Tablet] 75 mg PO DAILY 02/15/15 Azithromycin [Zithromax 250 mg Tablet] 250 mg PO DAILY MDD FILLED 09/14 FOR 5 DAY SUPPLY 09/15/20 Carvedilol [Coreg 12.5 mg Tablet] 12.5 mg PO Q12 09/15/20 Cyclobenzaprine HCl [Flexeril 10 mg Tablet] 10 mg PO TIDP PRN 09/15/20 Ezetimibe [Zetia 10 mg Tablet] 10 mg PO QHS 09/15/20 Furosemide [Lasix 20 mg Tablet] 20 mg PO QAM 09/15/20 Gabapentin [Neurontin 100 mg Capsule] 100 mg PO Q8 09/15/20 Meclizine HCl [Antivert 25 mg Tablet] 25 mg PO TIDP PRN 09/15/20 Multivitamin/Folic Acid/Biotin [Hair, Skin and Nails Tablet] 1 each PO DAILY 09/15/20 Ondansetron HCl [Zofran 8 mg Tablet] 8 mg PO Q8HP PRN 09/15/20 Pantoprazole Sodium [Protonix [address] Tablet] 40 mg PO BIDBS 09/15/20 Potassium Chloride [Klor-Con 10 Meq Tablet ER] 10 meq PO DAILY 09/15/20 Rosuvastatin Calcium [Crestor] 10 mg PO DAILY 09/15/20 Allergies/Adverse Reactions: morphine [Morphine] Allergy (Severe, Verified 09/07/20 17:25) Hives Review of Systems Constitutional: PRESENT: chills, fatigue, fever(s), weakness Eyes: ABSENT: visual disturbances Ears: ABSENT: hearing changes Nose, Mouth, and Throat: ABSENT: headache(s) Cardiovascular: PRESENT: dyspnea on exertion. ABSENT: chest pain Respiratory: PRESENT: dyspnea Gastrointestinal: PRESENT: bloating. ABSENT: diarrhea, nausea, vomiting Genitourinary: ABSENT: difficulty urinating, dysuria Musculoskeletal: PRESENT: other - Neuropathy left leg. ABSENT: joint swelling Neurological: ABSENT: confusion, dizziness Psychiatric: PRESENT: anxiety, depression Endocrine: ABSENT: polyuria Hematologic/Lymphatic: ABSENT: easy bleeding Physical Exam Vital Signs: Temp Pulse Resp BP Pulse Ox 100.7 F H 91 25 H 155/71 H 92 09/15/20 09:32 09/15/20 09:32 09/15/20 13:33 09/15/20 13:33 09/15/20 13:33 Intake & Output 09/14/20 09/15/20 09/16/20 06:59 06:59 06:59 Intake Total 500 Balance 500 Weight 107.4 kg General appearance: PRESENT: no acute distress, cooperative, morbidly obese Head exam: PRESENT: normocephalic Eye exam: PRESENT: EOMI Mouth exam: PRESENT: neck supple Neck exam: ABSENT: JVD Respiratory exam: PRESENT: crackles, symmetrical, unlabored. ABSENT: accessory muscle use, clear to auscultation ruslan, retraction, tachypnea, wheezes Cardiovascular exam: PRESENT: RRR, +S1, +S2. ABSENT: tachycardia GI/Abdominal exam: PRESENT: soft, tenderness - Mild. ABSENT: distended, firm, guarding, rebound, rigid Extremities exam: ABSENT: calf tenderness, +2 edema Neurological exam: PRESENT: alert, awake, oriented to person, oriented to place, oriented to time, oriented to situation Psychiatric exam: PRESENT: anxious - Very, depressed. ABSENT: agitated Focused psych exam: ABSENT: internal stimuli, pressured speech, restlessness Skin exam: ABSENT: jaundice Results Laboratory Results: 09/15/20 10:45 09/15/20 10:45 09/15/20 09/15/20 09/15/20 10:45 10:45 10:45 WBC 7.3 RBC 3.63 L Hgb 11.3 L Hct 32.3 L MCV 89 MCH 31.0 MCHC 34.9 RDW 13.7 Plt Count 318 Seg Neutrophils % 76.0 VBG pH VBG pCO2 VBG HCO3 VBG Base Excess Sodium 137.2 Potassium 3.8 Chloride 101 Carbon Dioxide 30 Anion Gap 6 BUN 9 Creatinine 0.61 Est GFR ( Amer) > 60 Glucose 203 H Lactic Acid 1.3 Calcium 8.3 L Total Bilirubin 0.6 AST 69 H Alkaline Phosphatase 200 H Total Protein 6.9 Albumin 3.4 L Urine Color Urine Appearance Urine pH Ur Specific [place] Urine Protein Urine Glucose (UA) Urine Ketones Urine Blood Urine Nitrite Ur Leukocyte Esterase Urine WBC (Auto) 09/15/20 09/15/20 09/15/20 10:45 12:17 13:51 WBC RBC Hgb Hct MCV MCH MCHC RDW Plt Count Seg Neutrophils % VBG pH 7.42 VBG pCO2 40.2 VBG HCO3 25.5 VBG Base Excess 1.1 Sodium Potassium Chloride Carbon Dioxide Anion Gap BUN Creatinine Est GFR ( Amer) Glucose Lactic Acid 0.8 Calcium Total Bilirubin AST Alkaline Phosphatase Total Protein Albumin Urine Color YELLOW Urine Appearance CLEAR Urine pH 6.0 Ur Specific [place] 1.010 Urine Protein NEGATIVE Urine Glucose (UA) NEGATIVE Urine Ketones NEGATIVE Urine Blood NEGATIVE Urine Nitrite NEGATIVE Ur Leukocyte Esterase NEGATIVE Urine WBC (Auto) 1 09/15/20 10:45 Troponin I < 0.012 Impressions: Chest X-Ray 09/15/20 09:45 IMPRESSION: Cardiomegaly and bilateral patchy parenchymal opacities in a peribronchial distribution. Differential considerations include pulmonary edema multifocal pneumonia. Assessment and Plan - Diagnosis (1) Pneumonia due to COVID-19 virus Is this a current diagnosis for this admission?: Yes Plan: Currently, patient is 11 days out from symptom onset so does not qualify for Remdesivir [place] plasma will be attempted Dexamethasone Vitamin and zinc supplements Trial of ivermectin (2) Acute respiratory failure with hypoxia Is this a current diagnosis for this admission?: Yes Plan: Secondary to COVID-19 pneumonia. Requiring 2 L nasal cannula. Monitor closely. (3) Neuropathic pain of left lower extremity Is this a current diagnosis for this admission?: Yes Plan: Has history of iatrogenic pinched nerve in her left hip from a hip injection attempt. Continue gabapentin and muscle relaxant. (4) HTN (hypertension) Qualifiers: Hypertension type: essential hypertension Qualified Code(s): I10 - Essential (primary) hypertension Is this a current diagnosis for this admission?: Yes Plan: Coreg (5) Hyperlipidemia Is this a current diagnosis for this admission?: Yes Plan: On Zetia and statin which will be continued. She also notes history of hypertriglyceridemia. (6) Anxiety Is this a current diagnosis for this admission?: Yes Plan: She is very anxious and scared about potential of dying from this unfortunate disease. We will continue her venlafaxine and augment with some p.o. Ativan to help with her anxiety. (7) Advance care planning Is this a current diagnosis for this admission?: Yes Plan: Discussed with the patient current COVID-19 infection and hypoxia. Discussed the uncertainty as to the outcome of this disease. Discussed CODE STATUS and patient wants to be a full code. She is also okay with intubation in the absence of cardiac arrest. She wants full treatment. She expresses how scared she is about fatality from this disease. 17 mins spent on this ACP conversation - Time Time Spent with patient: 35 or more minutes Anticipated Discharge Disposition: Home, Self Care Anticipated Discharge Timeframe: unknown
--- NOTE | 2020-09-15 15:43 | RADIOLOGY REPORT (SQ) ---
EXAM DESCRIPTION: CTA CHEST IMAGES COMPLETED DATE/TIME: 09/15/2020 3:09 pm REASON FOR STUDY: covid. r/o pe COMPARISON: 2014 TECHNIQUE: CT scan of the chest performed using helical scanning technique with dynamic intravenous contrast injection. Images reviewed with lung, soft tissue and bone windows. Reconstructed coronal and sagittal MPR images reviewed. Additional 3 dimensional post-processing performed to develop Maximal Intensity Projection images (MO P). All images stored on PACS. All CT scanners at this facility use dose modulation, iterative reconstruction, and/or weight based d osing when appropriate to reduce radiation dose to as low as reasonably achievable (ALARA). [facility]: Dose Right [facility]: CareDose [facility]: Dose Right [facility]: Teradose 4D [facility]: Nautal CONTRAST TYPE AND DOSE: contrast/concentration: Isovue 350.00 mmol/ml; Total Contrast Delivered: 71. 0 ml; Total Saline Delivered: 62.5 ml Contrast bolus adequate for pulmonary arteries and aorta. RENAL FUNCTION: BUN 9 creatinine 0.61 RADIATION DOSE: CT Rad equipment meets quality standard of care and radiation dose reduction techniq ues were employed. CTDIvol: 13.2 - 32.5 mGy. DLP: 1129 mGy-cm. . LIMITATIONS: None. FINDINGS: LUNGS AND PLEURA: Patchy ground-glass opacification in both lungs. AORTA AND GREAT VESSELS: No aneurysm. No dissection. HEART: No pericardial effusion. No significant coronary artery calcifications. PULMONARY ARTERIES: No emboli visualized in the main pulmonary arteries or the segmental branches. HILAR AND MEDIASTINAL STRUCTURES: No identified masses or abnormal nodes. HARDWARE: None in the chest. UPPER ABDOMEN: No significant findings. Limited exam. THYROID AND OTHER SOFT TISSUES: No masses. No adenopathy. BONES: No acute or significant finding. 3D MIPS: Confirm above findings. OTHER: No other significant finding. IMPRESSION: 1. There is no pulmonary embolus. There is no aortic aneurysm or dissection. 2. Patchy ground-glass infiltrates in both lungs consistent with the diagnosis of COVID-19 pneumonia . COMMENT: Quality ID # [id number]: Final reports with documentation of one or more dose reduction techniques (e.g., Automated exposure control, adjustment of the mA and/or kV according to patient size, use of iterative reconstruction technique) TECHNICAL DOCUMENTATION: JOB ID: [id number] 2010 [employer]- All Rights Reserved Reading location - IP/workstation name: [email or web address]
[2020-09-15] MEDS: ZINC SULFATE 220 MG CAPSULE PO SCH (15:58)
[2020-09-15] MEDS: LORAZEPAM 1 MG TABLET PO PRN (15:59)
[2020-09-15] MEDS: CHOLECALCIFEROL (D3) 1,000 UNIT (25 MCG) TABLET PO SCH (15:59)
[2020-09-15] MEDS: PANTOPRAZOLE SODIUM 40 MG TABLET.DR PO SCH (16:00)
[2020-09-15] MEDS: GABAPENTIN 100 MG CAPSULE PO SCH ×2 (16:00→21:20)
--- NOTE | 2020-09-15 16:41 | EKG REPORT ---
SEVERITY:- ABNORMAL ECG - SINUS WITH BASELINE ARTIFACTS, REPEAT EKG ABNRM R PROG, CONSIDER ASMI OR LEAD PLACEMENT : Confirmed by: Tigre Butler 15-Sep-2020 16:40:34
[2020-09-15] MEDS: ASCORBIC ACID 500 MG TABLET PO SCH (18:34)
[2020-09-15] MEDS: ALBUTEROL SULFATE HFA (90 MCG/PUFF) 8 GM MDI IH SCH (18:35)
[2020-09-15] MEDS: IVERMECTIN 3 MG TABLET PO SCH (18:35)
[2020-09-15] MEDS: ATORVASTATIN CALCIUM 20 MG TABLET PO SCH (21:19)
[2020-09-15] MEDS: FAMOTIDINE 20 MG TABLET PO SCH (21:19)
[2020-09-15] MEDS: CARVEDILOL 12.5 MG TABLET PO SCH (21:19)
[2020-09-15] MEDS: EZETIMIBE 10 MG TABLET PO SCH (21:20)
[2020-09-15] MEDS: ZOLPIDEM TARTRATE 5 MG TABLET PO PRN (21:20)
[2020-09-16] MEDS: GABAPENTIN 100 MG CAPSULE PO SCH ×3 (05:13→21:50)
[2020-09-16] MEDS: ALBUTEROL SULFATE HFA (90 MCG/PUFF) 8 GM MDI IH SCH ×4 (05:14→17:14)
[2020-09-16 07:27] LABS: ALBUMIN 3.3 g/dL (3.5-5.0); ALKALINE PHOSPHATASE 191 U/L (38-126); ANION GAP 7 (5-19); ASPARTATE AMINO TRANSFERASE 56 U/L (14-36); BILIRUBIN,DIRECT 0.2 mg/dL (0.0-0.4); BILIRUBIN,TOTAL 0.5 mg/dL (0.2-1.3); BLOOD UREA NITROGEN 12 mg/dL (7-20); C-REACTIVE PROTEIN 56.3 mg/L (<10.0); CALCIUM 9.1 mg/dL (8.4-10.2); CARBON DIOXIDE 30 mmol/L (22-30); CHLORIDE 102 mmol/L (98-107); CREATINE KINASE 70 U/L (30-135); GLUCOSE 180 mg/dL (75-110); POTASSIUM 4.5 mmol/L (3.6-5.0); TOTAL PROTEIN 6.5 g/dL (6.3-8.2)
[2020-09-16] MEDS: FUROSEMIDE 20 MG TABLET PO SCH (07:53)
[2020-09-16] MEDS: LORAZEPAM 1 MG TABLET PO PRN (07:54)
[2020-09-16] MEDS: PANTOPRAZOLE SODIUM 40 MG TABLET.DR PO SCH ×2 (07:54→17:13)
[2020-09-16] MEDS: VENLAFAXINE HCL 75 MG TABLET PO SCH (10:48)
[2020-09-16] MEDS: FAMOTIDINE 20 MG TABLET PO SCH ×2 (10:48→21:50)
[2020-09-16] MEDS: CARVEDILOL 12.5 MG TABLET PO SCH ×2 (10:48→21:50)
[2020-09-16] MEDS: ASCORBIC ACID 500 MG TABLET PO SCH ×2 (10:48→17:13)
[2020-09-16] MEDS: CYCLOBENZAPRINE HCL 10 MG TABLET PO PRN ×2 (10:48→21:50)
[2020-09-16] MEDS: CHOLECALCIFEROL (D3) 1,000 UNIT (25 MCG) TABLET PO SCH (10:48)
[2020-09-16] MEDS: ENOXAPARIN SODIUM INJ 40 MG/0.4 ML DISP.SYRIN SUBCUT SCH (10:49)
[2020-09-16] MEDS: POTASSIUM CHLORIDE 10 MEQ TABLET.ER PO SCH (10:49)
[2020-09-16] MEDS: DEXAMETHASONE SOD PHOS INJ 10 MG/1 ML VIAL IV SCH (10:49)
[2020-09-16] MEDS: AZITHROMYCIN 250 MG TABLET PO SCH (10:49)
[2020-09-16] MEDS: ZINC SULFATE 220 MG CAPSULE PO SCH (10:49)
[2020-09-16] MEDS: ACETAMINOPHEN 325 MG TABLET PO PRN ×2 (17:13→21:50)
--- NOTE | 2020-09-16 17:42 | PDOC PROGRESS REPORT ---
Subjective Date:: 09/16/20 Subjective:: Patient seen and evaluated. Chart reviewed. She is a little tearful and anxiou s but says breathing is better Reason For Visit: HYPOXIA,COVID Physical Exam Vital Signs: Temp Pulse Resp BP Pulse Ox 98.2 F 72 20 140/58 H 92 09/16/20 15:22 09/16/20 15:22 09/16/20 15:22 09/16/20 15:22 09/16/20 15:22 Intake & Output 09/15/20 09/16/20 09/17/20 06:59 06:59 06:59 Intake Total 937 520 Output Total 0 Balance 937 520 Weight 111.1 kg General appearance: PRESENT: no acute distress, well-developed, well-nourished Head exam: PRESENT: atraumatic, normocephalic Eye exam: PRESENT: conjunctiva pink, EOMI, PERRLA. ABSENT: scleral icterus Ear exam: PRESENT: normal external ear exam Mouth exam: PRESENT: moist, tongue midline Neck exam: ABSENT: carotid bruit, JVD, lymphadenopathy, thyromegaly Respiratory exam: PRESENT: clear to auscultation ruslan. ABSENT: rales, rhonchi, w heezes Cardiovascular exam: PRESENT: RRR, +S1, +S2. ABSENT: diastolic murmur, rubs, systolic murmur Pulses: PRESENT: normal dorsalis pedis pul Vascular exam: PRESENT: normal capillary refill GI/Abdominal exam: PRESENT: normal bowel sounds, soft. ABSENT: distended, guarding, mass, organolmegaly, rebound, tenderness Rectal exam: PRESENT: deferred Extremities exam: PRESENT: full ROM. ABSENT: calf tenderness, clubbing, pedal edema Neurological exam: PRESENT: alert, awake, oriented to person, oriented to place, oriented to time, oriented to situation, CN II-XII grossly intact. ABSENT: motor sensory deficit Psychiatric exam: PRESENT: anxious, normal mood. ABSENT: homicidal ideation, suicidal ideation Skin exam: PRESENT: dry, intact, warm. ABSENT: cyanosis, rash Results Laboratory Results: 09/15/20 10:45 09/16/20 06:23 09/15/20 09/16/20 16:14 06:23 Sodium 138.8 Potassium 4.5 Chloride 102 Carbon Dioxide 30 Anion Gap 7 BUN 12 Creatinine 0.56 Est GFR ( Amer) > 60 Glucose 180 H Calcium 9.1 Ferritin 566.00 H Total Bilirubin 0.5 AST 56 H Alkaline Phosphatase 191 H C-Reactive Protein 56.3 H Total Protein 6.5 Albumin 3.3 L Blood Type A POSITIVE 09/15/20 09/16/20 10:45 06:23 Creatine Kinase 70 Troponin I < 0.012 Impressions: Chest/Abdomen CTA 09/15/20 00:00 IMPRESSION: 1. There is no pulmonary embolus. There is no aortic aneurysm or dissection. 2. Patchy ground-glass infiltrates in both lungs consistent with the diagnosis of COVID-19 pneumonia. Chest X-Ray 09/15/20 09:45 IMPRESSION: Cardiomegaly and bilateral patchy parenchymal opacities in a peribronchial distribution. Differential considerations include pulmonary edema multifocal pneumonia. Assessment and Plan - Diagnosis (2) Acute respiratory failure with hypoxia Is this a current diagnosis for this admission?: Yes Plan: Secondary to COVID-19 pneumonia. Requiring 2 L nasal cannula. Monitor closely. 09/16 Remains stable (3) Anxiety Is this a current diagnosis for this admission?: Yes Plan: She is very anxious and scared about potential of dying from this unfortunate disease. We will continue her venlafaxine and augment with some p.o. Ativan to help with her anxiety. (4) Neuropathic pain of left lower extremity Is this a current diagnosis for this admission?: Yes Plan: Has history of iatrogenic pinched nerve in her left hip from a hip injection attempt. Continue gabapentin and muscle relaxant. Follow up as outpatient as needed (5) HTN (hypertension) Qualifiers: Hypertension type: essential hypertension Qualified Code(s): I10 - Essential (primary) hypertension Is this a current diagnosis for this admission?: Yes Plan: Continue Coreg (6) Hyperlipidemia Is this a current diagnosis for this admission?: Yes Plan: On Zetia and statin which will be continued. She also has history of hypertriglyceridemia. - Time Time Spent with patient: 15-24 minutes Medications reviewed and adjusted accordingly: Yes Anticipated Discharge Disposition: Home, Self Care Anticipated Discharge Timeframe: within 72 hours
[2020-09-16] MEDS: EZETIMIBE 10 MG TABLET PO SCH (21:50)
[2020-09-16] MEDS: ATORVASTATIN CALCIUM 20 MG TABLET PO SCH (21:50)
[2020-09-16] MEDS: ZOLPIDEM TARTRATE 5 MG TABLET PO PRN (21:54)
[2020-09-17] MEDS: ALBUTEROL SULFATE HFA (90 MCG/PUFF) 8 GM MDI IH SCH ×5 (00:23→23:19)
[2020-09-17] MEDS: GABAPENTIN 100 MG CAPSULE PO SCH ×3 (05:50→21:00)
[2020-09-17 07:48] LABS: ALKALINE PHOSPHATASE 160 U/L (38-126); ANION GAP 8 (5-19); ASPARTATE AMINO TRANSFERASE 41 U/L (14-36); BILIRUBIN,DIRECT 0.3 mg/dL (0.0-0.4); BILIRUBIN,TOTAL 0.5 mg/dL (0.2-1.3); BLOOD UREA NITROGEN 17 mg/dL (7-20); CALCIUM 8.9 mg/dL (8.4-10.2); CARBON DIOXIDE 26 mmol/L (22-30); CHLORIDE 105 mmol/L (98-107); CREATINE KINASE 67 U/L (30-135); GLUCOSE 203 mg/dL (75-110); POTASSIUM 4.6 mmol/L (3.6-5.0); TOTAL PROTEIN 5.9 g/dL (6.3-8.2)
[2020-09-17] MEDS: FUROSEMIDE 20 MG TABLET PO SCH (08:35)
[2020-09-17] MEDS: PANTOPRAZOLE SODIUM 40 MG TABLET.DR PO SCH ×2 (08:35→18:09)
[2020-09-17] MEDS: FAMOTIDINE 20 MG TABLET PO SCH ×2 (10:17→21:00)
[2020-09-17] MEDS: ZINC SULFATE 220 MG CAPSULE PO SCH (10:17)
[2020-09-17] MEDS: CHOLECALCIFEROL (D3) 1,000 UNIT (25 MCG) TABLET PO SCH (10:17)
[2020-09-17] MEDS: POTASSIUM CHLORIDE 10 MEQ TABLET.ER PO SCH (10:18)
[2020-09-17] MEDS: VENLAFAXINE HCL 75 MG TABLET PO SCH (10:18)
[2020-09-17] MEDS: DEXAMETHASONE SOD PHOS INJ 10 MG/1 ML VIAL IV SCH (10:18)
[2020-09-17] MEDS: ASCORBIC ACID 500 MG TABLET PO SCH ×2 (10:18→18:09)
[2020-09-17] MEDS: CARVEDILOL 12.5 MG TABLET PO SCH ×2 (10:18→21:00)
[2020-09-17] MEDS: AZITHROMYCIN 250 MG TABLET PO SCH (10:18)
[2020-09-17] MEDS: ENOXAPARIN SODIUM INJ 40 MG/0.4 ML DISP.SYRIN SUBCUT SCH (10:22)
[2020-09-17] MEDS: LORAZEPAM 1 MG TABLET PO PRN ×2 (10:39→23:44)
[2020-09-17] MEDS: CYCLOBENZAPRINE HCL 10 MG TABLET PO PRN (15:20)
[2020-09-17] MEDS: IVERMECTIN 3 MG TABLET PO SCH (18:09)
--- NOTE | 2020-09-17 18:12 | PDOC PROGRESS REPORT ---
Subjective Date:: 09/17/20 Subjective:: Patient seen and evaluated. Chart reviewed. She is a little tearful and anxiou s but says breathing is better 09/17 She appears to be in better spirits today. Her breathing is also improved Reason For Visit: HYPOXIA,COVID Physical Exam Vital Signs: Temp Pulse Resp BP Pulse Ox 97.9 F 65 20 168/72 H 93 09/17/20 16:06 09/17/20 16:06 09/17/20 16:06 09/17/20 16:06 09/17/20 16:06 Intake & Output 09/16/20 09/17/20 09/18/20 06:59 06:59 06:59 Intake Total 937 1562 457 Output Total 0 Balance 937 1562 457 Weight 111.1 kg 110.5 kg General appearance: PRESENT: no acute distress, well-developed, well-nourished Head exam: PRESENT: atraumatic, normocephalic Eye exam: PRESENT: conjunctiva pink, EOMI, PERRLA. ABSENT: scleral icterus Ear exam: PRESENT: normal external ear exam Mouth exam: PRESENT: moist, tongue midline Neck exam: ABSENT: carotid bruit, JVD, lymphadenopathy, thyromegaly Respiratory exam: PRESENT: clear to auscultation ruslan, unlabored. ABSENT: rales, rhonchi, wheezes Cardiovascular exam: PRESENT: RRR, +S1, +S2. ABSENT: diastolic murmur, rubs, systolic murmur Pulses: PRESENT: normal dorsalis pedis pul Vascular exam: PRESENT: normal capillary refill GI/Abdominal exam: PRESENT: normal bowel sounds, soft. ABSENT: distended, guarding, mass, organolmegaly, rebound, tenderness Rectal exam: PRESENT: deferred Extremities exam: PRESENT: full ROM. ABSENT: calf tenderness, clubbing, pedal edema Neurological exam: PRESENT: alert, awake, oriented to person, oriented to place, oriented to time, oriented to situation, CN II-XII grossly intact. ABSENT: motor sensory deficit Psychiatric exam: PRESENT: appropriate affect, normal mood. ABSENT: homicidal ideation, suicidal ideation Skin exam: PRESENT: dry, intact, warm. ABSENT: cyanosis, rash Results Laboratory Results: 09/15/20 10:45 09/17/20 05:51 09/17/20 05:51 Sodium 138.5 Potassium 4.6 Chloride 105 Carbon Dioxide 26 Anion Gap 8 BUN 17 Creatinine 0.54 Est GFR ( Amer) > 60 Glucose 203 H Calcium 8.9 Total Bilirubin 0.5 AST 41 H Alkaline Phosphatase 160 H Total Protein 5.9 L Albumin 3.0 L 09/15/20 09/16/20 09/17/20 10:45 06:23 05:51 Creatine Kinase 70 67 Troponin I < 0.012 Impressions: Chest/Abdomen CTA 09/15/20 00:00 IMPRESSION: 1. There is no pulmonary embolus. There is no aortic aneurysm or dissection. 2. Patchy ground-glass infiltrates in both lungs consistent with the diagnosis of COVID-19 pneumonia. Chest X-Ray 09/15/20 09:45 IMPRESSION: Cardiomegaly and bilateral patchy parenchymal opacities in a peribronchial distribution. Differential considerations include pulmonary edema multifocal pneumonia. Assessment and Plan - Diagnosis (2) Acute respiratory failure with hypoxia Is this a current diagnosis for this admission?: Yes Plan: Secondary to COVID-19 pneumonia. Requiring 2 L nasal cannula. Monitor closely. 09/16 Remains stable 09/17 patient appears to be improving (3) Anxiety Is this a current diagnosis for this admission?: Yes Plan: Improved today (4) Neuropathic pain of left lower extremity Is this a current diagnosis for this admission?: Yes (5) HTN (hypertension) Qualifiers: Hypertension type: essential hypertension Qualified Code(s): I10 - Essential (primary) hypertension Is this a current diagnosis for this admission?: Yes (6) Hyperlipidemia Is this a current diagnosis for this admission?: Yes - Plan Summary Summary: Continue current management. Patient appears to be responding well to therapy at this point - Time Time Spent with patient: 15-24 minutes Medications reviewed and adjusted accordingly: Yes Anticipated Discharge Disposition: Home, Self Care Anticipated Discharge Timeframe: within 72 hours
[2020-09-17] MEDS: EZETIMIBE 10 MG TABLET PO SCH (21:00)
[2020-09-17] MEDS: ZOLPIDEM TARTRATE 5 MG TABLET PO PRN (21:00)
[2020-09-17] MEDS: ATORVASTATIN CALCIUM 20 MG TABLET PO SCH (21:01)
[2020-09-18] MEDS: GABAPENTIN 100 MG CAPSULE PO SCH ×3 (05:29→21:27)
[2020-09-18] MEDS: ALBUTEROL SULFATE HFA (90 MCG/PUFF) 8 GM MDI IH SCH ×3 (05:32→18:21)
[2020-09-18 06:47] LABS: ALKALINE PHOSPHATASE 149 U/L (38-126); ANION GAP 7 (5-19); ASPARTATE AMINO TRANSFERASE 29 U/L (14-36); BILIRUBIN,DIRECT 0.1 mg/dL (0.0-0.4); BILIRUBIN,TOTAL 0.4 mg/dL (0.2-1.3); BLOOD UREA NITROGEN 17 mg/dL (7-20); C-REACTIVE PROTEIN 9.7 mg/L (<10.0); CALCIUM 8.9 mg/dL (8.4-10.2); CARBON DIOXIDE 28 mmol/L (22-30); CHLORIDE 102 mmol/L (98-107); CREATINE KINASE 42 U/L (30-135); GLUCOSE 209 mg/dL (75-110); POTASSIUM 4.7 mmol/L (3.6-5.0)
[2020-09-18] MEDS: ZINC SULFATE 220 MG CAPSULE PO SCH (09:57)
[2020-09-18] MEDS: CARVEDILOL 12.5 MG TABLET PO SCH ×2 (09:58→21:27)
[2020-09-18] MEDS: ENOXAPARIN SODIUM INJ 40 MG/0.4 ML DISP.SYRIN SUBCUT SCH (09:58)
[2020-09-18] MEDS: FAMOTIDINE 20 MG TABLET PO SCH ×2 (09:58→21:27)
[2020-09-18] MEDS: PANTOPRAZOLE SODIUM 40 MG TABLET.DR PO SCH ×2 (09:58→18:20)
[2020-09-18] MEDS: FUROSEMIDE 20 MG TABLET PO SCH (09:58)
[2020-09-18] MEDS: VENLAFAXINE HCL 75 MG TABLET PO SCH (09:58)
[2020-09-18] MEDS: ASCORBIC ACID 500 MG TABLET PO SCH ×2 (09:58→18:20)
[2020-09-18] MEDS: CHOLECALCIFEROL (D3) 1,000 UNIT (25 MCG) TABLET PO SCH (09:58)
[2020-09-18] MEDS: DEXAMETHASONE SOD PHOS INJ 10 MG/1 ML VIAL IV SCH (09:58)
[2020-09-18] MEDS: POTASSIUM CHLORIDE 10 MEQ TABLET.ER PO SCH (09:58)
[2020-09-18] MEDS: AZITHROMYCIN 250 MG TABLET PO SCH (09:58)
[2020-09-18] MEDS: LORAZEPAM 1 MG TABLET PO PRN (10:02)
[2020-09-18] MEDS: CYCLOBENZAPRINE HCL 10 MG TABLET PO PRN ×2 (10:02→15:07)
--- NOTE | 2020-09-18 17:44 | PDOC PROGRESS REPORT ---
Subjective Date:: 09/18/20 Subjective:: Patient seen and evaluated. Chart reviewed. She is a little tearful and anxiou s but says breathing is better 09/17 She appears to be in better spirits today. Her breathing is also improved 09/18Patient appears to be improving. She is still anxious but does appear to be better Reason For Visit: HYPOXIA,COVID Physical Exam Vital Signs: Temp Pulse Resp BP Pulse Ox 98.0 F 93 18 144/67 H 97 09/18/20 15:54 09/18/20 15:54 09/18/20 15:54 09/18/20 15:54 09/18/20 15:54 Intake & Output 09/17/20 09/18/20 09/19/20 06:59 06:59 06:59 Intake Total 1562 817 Balance 1562 817 Weight 110.5 kg 110.9 kg General appearance: PRESENT: no acute distress, obese, well-developed, well- nourished Head exam: PRESENT: atraumatic, normocephalic Eye exam: PRESENT: conjunctiva pink, EOMI, PERRLA. ABSENT: scleral icterus Ear exam: PRESENT: normal external ear exam Mouth exam: PRESENT: moist, tongue midline Neck exam: ABSENT: carotid bruit, JVD, lymphadenopathy, thyromegaly Respiratory exam: PRESENT: clear to auscultation ruslan. ABSENT: rales, rhonchi, wheezes Cardiovascular exam: PRESENT: RRR, +S1, +S2. ABSENT: diastolic murmur, rubs, systolic murmur Pulses: PRESENT: normal dorsalis pedis pul Vascular exam: PRESENT: normal capillary refill GI/Abdominal exam: PRESENT: normal bowel sounds, soft. ABSENT: distended, guarding, mass, organolmegaly, rebound, tenderness Rectal exam: PRESENT: deferred Extremities exam: PRESENT: full ROM. ABSENT: calf tenderness, clubbing, pedal edema Neurological exam: PRESENT: alert, awake, oriented to person, oriented to place, oriented to time, oriented to situation, CN II-XII grossly intact. ABSENT: motor sensory deficit Psychiatric exam: PRESENT: appropriate affect, normal mood. ABSENT: homicidal ideation, suicidal ideation Skin exam: PRESENT: dry, intact, warm. ABSENT: cyanosis, rash Results Laboratory Results: 09/15/20 10:45 09/18/20 05:17 09/18/20 05:17 Sodium 136.5 L Potassium 4.7 Chloride 102 Carbon Dioxide 28 Anion Gap 7 BUN 17 Creatinine 0.60 Est GFR ( Amer) > 60 Glucose 209 H Calcium 8.9 Ferritin 413.00 H Total Bilirubin 0.4 AST 29 Alkaline Phosphatase 149 H C-Reactive Protein 9.7 Total Protein 6.0 L Albumin 3.0 L 09/15/20 09/16/20 09/17/20 10:45 06:23 05:51 Creatine Kinase 70 67 Troponin I < 0.012 09/18/20 05:17 Creatine Kinase 42 Troponin I Impressions: Chest/Abdomen CTA 09/15/20 00:00 IMPRESSION: 1. There is no pulmonary embolus. There is no aortic aneurysm or dissection. 2. Patchy ground-glass infiltrates in both lungs consistent with the diagnosis of COVID-19 pneumonia. Chest X-Ray 09/15/20 09:45 IMPRESSION: Cardiomegaly and bilateral patchy parenchymal opacities in a peribronchial distribution. Differential considerations include pulmonary edema multifocal pneumonia. Assessment and Plan - Diagnosis (2) Acute respiratory failure with hypoxia Is this a current diagnosis for this admission?: Yes (3) Anxiety Is this a current diagnosis for this admission?: Yes (4) Neuropathic pain of left lower extremity Is this a current diagnosis for this admission?: Yes (5) HTN (hypertension) Qualifiers: Hypertension type: essential hypertension Qualified Code(s): I10 - Essential (primary) hypertension Is this a current diagnosis for this admission?: Yes (6) Hyperlipidemia Is this a current diagnosis for this admission?: Yes - Plan Summary Summary: Continue current management. Patient appears to be responding well to therapy at this point 09/18 Her oxygen requirement is down to 1 L and in fact she probably can be taken off the oxygen. Oxygen saturation is 97%. She remains hemodynamically stable. LFTs continue to improve and in fact AST and ALT have normalized. She is still on Zithromax, dexamethasone 6 mg daily and she received 2 doses of ivermectin. If she continues to improve she may be able to be discharged home in 1 to 2 days - Time Time Spent with patient: 15-24 minutes Medications reviewed and adjusted accordingly: Yes Anticipated Discharge Disposition: Home, Self Care Anticipated Discharge Timeframe: within 48 hours
[2020-09-18] MEDS: ATORVASTATIN CALCIUM 20 MG TABLET PO SCH (21:27)
[2020-09-18] MEDS: EZETIMIBE 10 MG TABLET PO SCH (21:27)
[2020-09-19] MEDS: ALBUTEROL SULFATE HFA (90 MCG/PUFF) 8 GM MDI IH SCH ×4 (00:26→18:34)
[2020-09-19] MEDS: GABAPENTIN 100 MG CAPSULE PO SCH ×3 (05:20→21:15)
[2020-09-19 07:05] LABS: ALBUMIN 3.2 g/dL (3.5-5.0); ALKALINE PHOSPHATASE 138 U/L (38-126); ASPARTATE AMINO TRANSFERASE 26 U/L (14-36); BILIRUBIN,DIRECT 0.1 mg/dL (0.0-0.4); BILIRUBIN,TOTAL 0.4 mg/dL (0.2-1.3); BLOOD UREA NITROGEN 19 mg/dL (7-20); CALCIUM 8.7 mg/dL (8.4-10.2); CARBON DIOXIDE 31 mmol/L (22-30); CHLORIDE 101 mmol/L (98-107); CREATINE KINASE 25 U/L (30-135); GLUCOSE 145 mg/dL (75-110); POTASSIUM 3.8 mmol/L (3.6-5.0); TOTAL PROTEIN 6.4 g/dL (6.3-8.2)
[2020-09-19 07:10] LABS: ANION GAP 4 (5-19)
[2020-09-19] MEDS: CYCLOBENZAPRINE HCL 10 MG TABLET PO PRN (07:33)
[2020-09-19] MEDS: FUROSEMIDE 20 MG TABLET PO SCH (07:33)
[2020-09-19] MEDS: PANTOPRAZOLE SODIUM 40 MG TABLET.DR PO SCH ×2 (07:33→18:34)
[2020-09-19] MEDS: LORAZEPAM 1 MG TABLET PO PRN ×2 (07:33→21:25)
[2020-09-19] MEDS: DEXAMETHASONE SOD PHOS INJ 10 MG/1 ML VIAL IV SCH (09:59)
[2020-09-19] MEDS: CHOLECALCIFEROL (D3) 1,000 UNIT (25 MCG) TABLET PO SCH (09:59)
[2020-09-19] MEDS: ASCORBIC ACID 500 MG TABLET PO SCH ×2 (10:00→18:34)
[2020-09-19] MEDS: CARVEDILOL 12.5 MG TABLET PO SCH ×2 (10:00→21:15)
[2020-09-19] MEDS: ZINC SULFATE 220 MG CAPSULE PO SCH (10:00)
[2020-09-19] MEDS: AZITHROMYCIN 250 MG TABLET PO SCH (10:00)
[2020-09-19] MEDS: VENLAFAXINE HCL 75 MG TABLET PO SCH (10:00)
[2020-09-19] MEDS: POTASSIUM CHLORIDE 10 MEQ TABLET.ER PO SCH (10:00)
[2020-09-19] MEDS: ENOXAPARIN SODIUM INJ 40 MG/0.4 ML DISP.SYRIN SUBCUT SCH (10:00)
[2020-09-19] MEDS: FAMOTIDINE 20 MG TABLET PO SCH ×2 (10:00→21:15)
--- NOTE | 2020-09-19 13:25 | EKG REPORT ---
SEVERITY:- NORMAL ECG - SINUS RHYTHM : Confirmed by: Tigre Butler 19-Sep-2020 13:23:56
--- NOTE | 2020-09-19 14:14 | PDOC PROGRESS REPORT ---
Subjective Date:: 09/19/20 Subjective:: Feels better today. Fatigued. Ambulated on room air today and desaturated to 87% for about 1 minute and recovered on her home. Reason For Visit: HYPOXIA,COVID Physical Exam Vital Signs: Temp Pulse Resp BP Pulse Ox 97.9 F 65 18 141/61 H 90 L 09/19/20 11:12 09/19/20 11:12 09/19/20 11:12 09/19/20 11:12 09/19/20 11:12 Intake & Output 09/18/20 09/19/20 09/20/20 06:59 06:59 06:59 Intake Total 817 707 Balance 817 707 Weight 110.9 kg 109.4 kg General appearance: PRESENT: no acute distress, cooperative Neck exam: ABSENT: JVD Respiratory exam: PRESENT: symmetrical, unlabored. ABSENT: accessory muscle use, prolonged expiratory phas, tachypnea Cardiovascular exam: PRESENT: RRR, +S1, +S2. ABSENT: tachycardia Neurological exam: PRESENT: alert, awake, oriented to person, oriented to place, oriented to time, oriented to situation Psychiatric exam: PRESENT: anxious - mild. ABSENT: agitated Focused psych exam: ABSENT: pressured speech Skin exam: ABSENT: jaundice Results Laboratory Results: 09/15/20 10:45 09/19/20 05:58 09/19/20 05:58 Sodium 135.8 L Potassium 3.8 Chloride 101 Carbon Dioxide 31 H Anion Gap 4 L BUN 19 Creatinine 0.72 Est GFR ( Amer) > 60 Glucose 145 H Calcium 8.7 Total Bilirubin 0.4 AST 26 Alkaline Phosphatase 138 H Total Protein 6.4 Albumin 3.2 L 09/15/20 09/16/20 09/17/20 10:45 06:23 05:51 Creatine Kinase 70 67 Troponin I < 0.012 09/18/20 09/19/20 05:17 05:58 Creatine Kinase 42 25 L Troponin I Impressions: Chest/Abdomen CTA 09/15/20 00:00 IMPRESSION: 1. There is no pulmonary embolus. There is no aortic aneurysm or dissection. 2. Patchy ground-glass infiltrates in both lungs consistent with the diagnosis of COVID-19 pneumonia. Chest X-Ray 09/15/20 09:45 IMPRESSION: Cardiomegaly and bilateral patchy parenchymal opacities in a peribronchial distribution. Differential considerations include pulmonary edema multifocal pneumonia. Assessment and Plan - Diagnosis (1) Pneumonia due to COVID-19 virus Is this a current diagnosis for this admission?: Yes Plan: Patient was 11 days out from symptom onset so did not qualify for Remdesivir Continue dexamethasone Vitamin and zinc supplements S/p 2 doses of ivermectin s/p covalascent plasma (2) Acute respiratory failure with hypoxia Is this a current diagnosis for this admission?: Yes Plan: Patient is no longer requiring oxygen. Able to tolerate being on room air at rest. Ambulatory pulse ox on room air is 87%. We'll give another day on steriods and re-evaluate tomorrow. (3) Neuropathic pain of left lower extremity Is this a current diagnosis for this admission?: Yes Plan: Has history of iatrogenic pinched nerve in her left hip from a hip injection attempt. Continue gabapentin and muscle relaxant. Follow up as outpatient as needed (4) HTN (hypertension) Qualifiers: Hypertension type: essential hypertension Qualified Code(s): I10 - Essential (primary) hypertension Is this a current diagnosis for this admission?: Yes Plan: Continue Coreg (5) Hyperlipidemia Is this a current diagnosis for this admission?: Yes Plan: On Zetia and statin which will be continued. She also has history of hypertriglyceridemia. (6) Anxiety Is this a current diagnosis for this admission?: Yes Plan: Improved today - Time Time Spent with patient: Less than 15 minutes Anticipated Discharge Disposition: Home, Self Care Anticipated Discharge Timeframe: within 24 hours
[2020-09-19] MEDS: ATORVASTATIN CALCIUM 20 MG TABLET PO SCH (21:15)
[2020-09-19] MEDS: EZETIMIBE 10 MG TABLET PO SCH (21:15)
[2020-09-20] MEDS: ALBUTEROL SULFATE HFA (90 MCG/PUFF) 8 GM MDI IH SCH ×4 (00:29→17:11)
[2020-09-20] MEDS: GABAPENTIN 100 MG CAPSULE PO SCH ×3 (05:23→21:03)
[2020-09-20 06:25] LABS: ALBUMIN 2.9 g/dL (3.5-5.0); ALKALINE PHOSPHATASE 124 U/L (38-126); ANION GAP 5 (5-19); ASPARTATE AMINO TRANSFERASE 27 U/L (14-36); BILIRUBIN,DIRECT 0.3 mg/dL (0.0-0.4); BILIRUBIN,TOTAL 0.6 mg/dL (0.2-1.3); BLOOD UREA NITROGEN 19 mg/dL (7-20); CALCIUM 8.5 mg/dL (8.4-10.2); CARBON DIOXIDE 29 mmol/L (22-30); CHLORIDE 101 mmol/L (98-107); GLUCOSE 148 mg/dL (75-110); POTASSIUM 4.4 mmol/L (3.6-5.0); TOTAL PROTEIN 5.9 g/dL (6.3-8.2)
[2020-09-20 06:26] LABS: C-REACTIVE PROTEIN < 5.0 mg/L (<10.0); CREATINE KINASE < 20 U/L (30-135)
[2020-09-20] MEDS: FUROSEMIDE 20 MG TABLET PO SCH (07:55)
[2020-09-20] MEDS: PANTOPRAZOLE SODIUM 40 MG TABLET.DR PO SCH ×2 (07:55→17:11)
[2020-09-20] MEDS: CYCLOBENZAPRINE HCL 10 MG TABLET PO PRN (08:36)
[2020-09-20] MEDS: CHOLECALCIFEROL (D3) 1,000 UNIT (25 MCG) TABLET PO SCH (09:40)
[2020-09-20] MEDS: ENOXAPARIN SODIUM INJ 40 MG/0.4 ML DISP.SYRIN SUBCUT SCH (09:40)
[2020-09-20] MEDS: VENLAFAXINE HCL 75 MG TABLET PO SCH (09:40)
[2020-09-20] MEDS: FAMOTIDINE 20 MG TABLET PO SCH ×2 (09:40→21:03)
[2020-09-20] MEDS: ZINC SULFATE 220 MG CAPSULE PO SCH (09:40)
[2020-09-20] MEDS: POTASSIUM CHLORIDE 10 MEQ TABLET.ER PO SCH (09:40)
[2020-09-20] MEDS: CARVEDILOL 12.5 MG TABLET PO SCH ×2 (09:40→21:02)
[2020-09-20] MEDS: ASCORBIC ACID 500 MG TABLET PO SCH ×2 (09:40→17:11)
[2020-09-20] MEDS: DEXAMETHASONE SOD PHOS INJ 10 MG/1 ML VIAL IV SCH (09:41)
[2020-09-20] MEDS: LORAZEPAM 1 MG TABLET PO PRN (09:50)
--- NOTE | 2020-09-20 15:44 | PDOC PROGRESS REPORT ---
Subjective Subjective:: Per Previous Physician: "EVERARDO STEPHEN is a 69 year old female with a history of hypertension, hypertriglyceridemia, depression, neuropathy in left leg, who presents to the hospital with complaints of progressive shortness of breath which has been going on over the past several days. She also complains of body aches and fevers. She felt quite breathless today and decided to come in. Of note, she had presented to the hospital ER on 09/07/2020 with complaints of shortness of breath for the pRIOR 3 days as well as fevers. At that time she was tested for COVID-19 which came back positive. She has been discharged home for self- isolation. However at this time she presents hypoxic. Noted to be 87% on room air in the ER. Referred to hospitalist service for admission. She denies any chest pain, diarrhea." 09/20/2020 Per my discussion with nursing, patient is emotionally labile at times and intermittently tearful. I did have a discussion with the patient today about her progress and informed her that she is doing extremely well considering her morbid obesity with BMI 43.2, medical comorbidities, advanced age, and COVID-19 active infection. She is breathing comfortably on room air. She is being c losely monitored as patients with Covid pneumonia have a tendency to get abruptly worse symptoms later in the course of infection. She has no new complaints otherwise. Reason For Visit: HYPOXIA,COVID Physical Exam Vital Signs: Temp Pulse Resp BP Pulse Ox 97.8 F 82 17 147/72 H 96 09/20/20 08:04 09/20/20 08:04 09/20/20 08:04 09/20/20 08:04 09/20/20 08:04 Intake & Output 09/19/20 09/20/20 09/21/20 06:59 06:59 06:59 Intake Total 707 820 Balance 707 820 Weight 109.4 kg 110.5 kg Exam: General appearance: PRESENT: no acute distress, well-developed, well-nourished, morbidly obese with BMI 43.2, Emotionally distressed but otherwise not particularly ill-appearing Head exam: PRESENT: atraumatic, normocephalic Eye exam: PRESENT: conjunctiva pink. ABSENT: scleral icterus Mouth exam: PRESENT: moist Respiratory exam: PRESENT: clear to auscultation ruslan. ABSENT: rales, rhonchi, wheezes Cardiovascular exam: PRESENT: RRR. ABSENT: diastolic murmur, rubs, systolic murmur GI/Abdominal exam: PRESENT: normal bowel sounds, soft. ABSENT: distended, guarding, mass, organolmegaly, rebound, tenderness Neurological exam: PRESENT: alert, awake, oriented to person, oriented to place, oriented to time, oriented to situation Psychiatric exam: PRESENT: appropriate affect, normal mood Skin exam: PRESENT: dry, intact, warm Results Laboratory Results: 09/15/20 10:45 09/20/20 04:30 09/20/20 04:30 Sodium 135.1 L Potassium 4.4 Chloride 101 Carbon Dioxide 29 Anion Gap 5 BUN 19 Creatinine 0.61 Est GFR ( Amer) > 60 Glucose 148 H Calcium 8.5 Ferritin 292.00 H Total Bilirubin 0.6 AST 27 Alkaline Phosphatase 124 C-Reactive Protein < 5.0 Total Protein 5.9 L Albumin 2.9 L 09/15/20 13:51 Blood Blood Culture - Final NO GROWTH IN 5 DAYS 09/15/20 10:45 Blood Blood Culture - Final NO GROWTH IN 5 DAYS 09/15/20 09/16/20 09/17/20 10:45 06:23 05:51 Creatine Kinase 70 67 Troponin I < 0.012 09/18/20 09/19/20 09/20/20 05:17 05:58 04:30 Creatine Kinase 42 25 L < 20 L Troponin I Impressions: Chest/Abdomen CTA 09/15/20 00:00 IMPRESSION: 1. There is no pulmonary embolus. There is no aortic aneurysm or dissection. 2. Patchy ground-glass infiltrates in both lungs consistent with the diagnosis of COVID-19 pneumonia. Chest X-Ray 09/15/20 09:45 IMPRESSION: Cardiomegaly and bilateral patchy parenchymal opacities in a peribronchial distribution. Differential considerations include pulmonary edema multifocal pneumonia. Assessment and Plan - Diagnosis (1) Acute respiratory failure due to COVID-19 Is this a current diagnosis for this admission?: Yes (2) Acute respiratory failure with hypoxia Is this a current diagnosis for this admission?: Yes (3) Advance care planning Is this a current diagnosis for this admission?: Yes (4) Anxiety Is this a current diagnosis for this admission?: Yes (5) COVID-19 Is this a current diagnosis for this admission?: Yes (6) Neuropathic pain of left lower extremity Is this a current diagnosis for this admission?: Yes (7) Pneumonia due to COVID-19 virus Is this a current diagnosis for this admission?: Yes (8) Dyspnea Is this a current diagnosis for this admission?: Yes (9) HTN (hypertension) Qualifiers: Hypertension type: essential hypertension Qualified Code(s): I10 - Essential (primary) hypertension Is this a current diagnosis for this admission?: Yes (10) Hyperlipidemia Is this a current diagnosis for this admission?: Yes - Plan Summary Summary: (1) Pneumonia due to COVID-19 virus Per Previous Physician: "Patient was 11 days out from symptom onset so did not qualify for Remdesivir Continue dexamethasone Vitamin and zinc supplements S/p 2 doses of ivermectin s/p covalascent plasma" Very slow, gradual, improvement (2) Acute respiratory failure with hypoxia Per Previous Physician: "Patient is no longer requiring oxygen. Able to tolerate being on room air at rest. Ambulatory pulse ox on room air is 87%. We'll give another day on steriods and re-evaluate tomorrow." Breathing reasonably well on room air provided she is not exerting herself (3) Neuropathic pain of left lower extremity Per Previous Physician: "Has history of iatrogenic pinched nerve in her left hip from a hip injection attempt. Continue gabapentin and muscle relaxant. Follow up as outpatient as needed" Okay to increase dose of Flexeril if it is not effective provided patient is not becoming somnolent (4) HTN (hypertension) Continue Coreg (5) Hyperlipidemia Continue Zetia (6) Anxiety Improved today - Time Time Spent with patient: 35 or more minutes Medications reviewed and adjusted accordingly: Yes Anticipated Discharge Disposition: Home with Home Health Anticipated Discharge Timeframe: within 48 hours - Inpatient Certification Based on my medical assessment, after consideration of the patient's comor bidities, presenting symptoms, or acuity I expect that the services needed warrant INPATIENT care.: Yes I certify that my determination is in accordance with my understanding of Medicare's requirements for reasonable and necessary INPATIENT services [42 CFR 412.3e].: Yes Medical Necessity: Significant Comorbidiites Make Outpatient Treatment Too Risky, Need Close Monitoring Due to Risk of Patient Decompensation, Need For Continuous Telemetry Monitoring, Risk of Complication if Not Cared For in Hospital, Risk of Diagnosis Which Will Require Inpatient Eval/Care/Monitoring
[2020-09-20] MEDS: EZETIMIBE 10 MG TABLET PO SCH (21:03)
[2020-09-20] MEDS: ATORVASTATIN CALCIUM 20 MG TABLET PO SCH (21:03)
[2020-09-20] MEDS: ZOLPIDEM TARTRATE 5 MG TABLET PO PRN (21:03)
[2020-09-21] MEDS: ALBUTEROL SULFATE HFA (90 MCG/PUFF) 8 GM MDI IH SCH ×4 (00:25→17:24)
[2020-09-21] MEDS: GABAPENTIN 100 MG CAPSULE PO SCH ×3 (05:57→21:29)
[2020-09-21 06:36] LABS: ALBUMIN 3.2 g/dL (3.5-5.0); ALKALINE PHOSPHATASE 125 U/L (38-126); ANION GAP 8 (5-19); ASPARTATE AMINO TRANSFERASE 22 U/L (14-36); BILIRUBIN,DIRECT 0.3 mg/dL (0.0-0.4); BILIRUBIN,TOTAL 0.7 mg/dL (0.2-1.3); BLOOD UREA NITROGEN 14 mg/dL (7-20); CALCIUM 9.2 mg/dL (8.4-10.2); CARBON DIOXIDE 26 mmol/L (22-30); CHLORIDE 100 mmol/L (98-107); GLUCOSE 233 mg/dL (75-110); TOTAL PROTEIN 6.3 g/dL (6.3-8.2)
[2020-09-21 06:47] LABS: CREATINE KINASE < 20 U/L (30-135)
[2020-09-21] MEDS: FUROSEMIDE 20 MG TABLET PO SCH (08:02)
[2020-09-21] MEDS: PANTOPRAZOLE SODIUM 40 MG TABLET.DR PO SCH ×2 (08:02→17:24)
[2020-09-21] MEDS: DEXAMETHASONE SOD PHOS INJ 10 MG/1 ML VIAL IV SCH (09:16)
[2020-09-21] MEDS: CHOLECALCIFEROL (D3) 1,000 UNIT (25 MCG) TABLET PO SCH (09:16)
[2020-09-21] MEDS: ASCORBIC ACID 500 MG TABLET PO SCH ×2 (09:16→17:24)
[2020-09-21] MEDS: VENLAFAXINE HCL 75 MG TABLET PO SCH (09:17)
[2020-09-21] MEDS: FAMOTIDINE 20 MG TABLET PO SCH ×2 (09:17→21:30)
[2020-09-21] MEDS: ZINC SULFATE 220 MG CAPSULE PO SCH (09:17)
[2020-09-21] MEDS: CARVEDILOL 12.5 MG TABLET PO SCH ×2 (09:17→21:29)
[2020-09-21] MEDS: POTASSIUM CHLORIDE 10 MEQ TABLET.ER PO SCH (09:17)
[2020-09-21] MEDS: ENOXAPARIN SODIUM INJ 40 MG/0.4 ML DISP.SYRIN SUBCUT SCH (09:20)
[2020-09-21] MEDS: LORAZEPAM 1 MG TABLET PO PRN (09:26)
--- NOTE | 2020-09-21 15:57 | PDOC PROGRESS REPORT ---
Subjective Subjective:: Per Previous Physician: "EVERARDO STEPHEN is a 69 year old female with a history of hypertension, hypertriglyceridemia, depression, neuropathy in left leg, who presents to the hospital with complaints of progressive shortness of breath which has been going on over the past several days. She also complains of body aches and fevers. She felt quite breathless today and decided to come in. Of note, she had presented to the hospital ER on 09/07/2020 with complaints of shortness of breath for the pRIOR 3 days as well as fevers. At that time she was tested for COVID-19 which came back positive. She has been discharged home for self- isolation. However at this time she presents hypoxic. Noted to be 87% on room air in the ER. Referred to hospitalist service for admission. She denies any chest pain, diarrhea." 09/20/2020 Per my discussion with nursing, patient is emotionally labile at times and intermittently tearful. I did have a discussion with the patient today about her progress and informed her that she is doing extremely well considering her morbid obesity with BMI 43.2, medical comorbidities, advanced age, and COVID-19 active infection. She is breathing comfortably on room air. She is being c losely monitored as patients with Covid pneumonia have a tendency to get abruptly worse symptoms later in the course of infection. She has no new complaints otherwise. 09/21/2020 Patient seems to be in much better spirits today. I believe she may be able to leave the hospital tomorrow if she continues to improve. She is currently maintained on room air. I recommended to the patient that she still get the vaccine even though she was infected with COVID-19 as early studies indicate that immunity due to COVID-19 infection can potentially wane over time and put patients at risk for recurrent infection. Reason For Visit: HYPOXIA,COVID Physical Exam Vital Signs: Temp Pulse Resp BP Pulse Ox 97.7 F 75 18 141/71 H 97 09/21/20 08:12 09/21/20 14:00 09/21/20 03:31 09/21/20 08:12 09/21/20 08:12 Intake & Output 09/20/20 09/21/20 09/22/20 06:59 06:59 06:59 Intake Total 820 974 Output Total 260 Balance 820 714 Weight 110.5 kg 108.8 kg Exam: General appearance: PRESENT: no acute distress, well-developed, well-nourished, morbidly obese with BMI 43.2, smiling and in good spirits today Head exam: PRESENT: atraumatic, normocephalic Eye exam: PRESENT: conjunctiva pink. ABSENT: scleral icterus Mouth exam: PRESENT: moist Respiratory exam: PRESENT: clear to auscultation ruslan. ABSENT: rales, rhonchi, wheezes Cardiovascular exam: PRESENT: RRR. ABSENT: diastolic murmur, rubs, systolic murmur GI/Abdominal exam: PRESENT: normal bowel sounds, soft. ABSENT: distended, guarding, mass, organolmegaly, rebound, tenderness Neurological exam: PRESENT: alert, awake, oriented to person, oriented to place, oriented to time, oriented to situation Psychiatric exam: PRESENT: appropriate affect, normal mood Skin exam: PRESENT: dry, intact, warm Results Laboratory Results: 09/15/20 10:45 09/21/20 05:48 09/21/20 05:48 Sodium 134.3 L Potassium 5.0 Chloride 100 Carbon Dioxide 26 Anion Gap 8 BUN 14 Creatinine 0.55 Est GFR ( Amer) > 60 Glucose 233 H Calcium 9.2 Total Bilirubin 0.7 AST 22 Alkaline Phosphatase 125 Total Protein 6.3 Albumin 3.2 L 09/15/20 13:51 Blood Blood Culture - Final NO GROWTH IN 5 DAYS 09/15/20 10:45 Blood Blood Culture - Final NO GROWTH IN 5 DAYS 09/15/20 09/16/20 09/17/20 10:45 06:23 05:51 Creatine Kinase 70 67 Troponin I < 0.012 09/18/20 09/19/20 09/20/20 05:17 05:58 04:30 Creatine Kinase 42 25 L < 20 L Troponin I 09/21/20 05:48 Creatine Kinase < 20 L Troponin I Impressions: Chest/Abdomen CTA 09/15/20 00:00 IMPRESSION: 1. There is no pulmonary embolus. There is no aortic aneurysm or dissection. 2. Patchy ground-glass infiltrates in both lungs consistent with the diagnosis of COVID-19 pneumonia. Chest X-Ray 09/15/20 09:45 IMPRESSION: Cardiomegaly and bilateral patchy parenchymal opacities in a peribronchial distribution. Differential considerations include pulmonary edema multifocal pneumonia. Assessment and Plan - Diagnosis (1) Acute respiratory failure due to COVID-19 Is this a current diagnosis for this admission?: Yes (2) Acute respiratory failure with hypoxia Is this a current diagnosis for this admission?: Yes (3) Advance care planning Is this a current diagnosis for this admission?: Yes (4) Anxiety Is this a current diagnosis for this admission?: Yes (5) COVID-19 Is this a current diagnosis for this admission?: Yes (6) Neuropathic pain of left lower extremity Is this a current diagnosis for this admission?: Yes (7) Pneumonia due to COVID-19 virus Is this a current diagnosis for this admission?: Yes (8) Dyspnea Is this a current diagnosis for this admission?: Yes (9) HTN (hypertension) Qualifiers: Hypertension type: essential hypertension Qualified Code(s): I10 - Essential (primary) hypertension Is this a current diagnosis for this admission?: Yes (10) Hyperlipidemia Is this a current diagnosis for this admission?: Yes - Plan Summary Summary: (1) Pneumonia due to COVID-19 virus Per Previous Physician: "Patient was 11 days out from symptom onset so did not qualify for Remdesivir Continue dexamethasone Vitamin and zinc supplements S/p 2 doses of ivermectin s/p covalascent plasma" Very slow, gradual, improvement Recommend getting vaccine outpatient when this is available to her (2) Acute respiratory failure with hypoxia Per Previous Physician: "Patient is no longer requiring oxygen. Able to tolerate being on room air at rest. Ambulatory pulse ox on room air is 87%. We'll give another day on steriods and re-evaluate tomorrow." Breathing reasonably well on room air provided she is not exerting herself (3) Neuropathic pain of left lower extremity Per Previous Physician: "Has history of iatrogenic pinched nerve in her left hip from a hip injection attempt. Continue gabapentin and muscle relaxant. Follow up as outpatient as needed" Okay to increase dose of Flexeril if it is not effective provided patient is not becoming somnolent (4) HTN (hypertension) Continue Coreg (5) Hyperlipidemia Continue Zetia (6) Anxiety Improved today - Time Time Spent with patient: 25-34 minutes Medications reviewed and adjusted accordingly: Yes Anticipated Discharge Disposition: Home, Self Care Anticipated Discharge Timeframe: within 24 hours - Inpatient Certification Based on my medical assessment, after consideration of the patient's comor bidities, presenting symptoms, or acuity I expect that the services needed warrant INPATIENT care.: Yes I certify that my determination is in accordance with my understanding of Medicare's requirements for reasonable and necessary INPATIENT services [42 CFR 412.3e].: Yes Medical Necessity: Significant Comorbidiites Make Outpatient Treatment Too Risky, Need Close Monitoring Due to Risk of Patient Decompensation, Risk of Complication if Not Cared For in Hospital, Risk of Diagnosis Which Will Require Inpatient Eval/Care/Monitoring
[2020-09-21] MEDS: ZOLPIDEM TARTRATE 5 MG TABLET PO PRN (21:29)
[2020-09-21] MEDS: ATORVASTATIN CALCIUM 20 MG TABLET PO SCH (21:29)
[2020-09-21] MEDS: EZETIMIBE 10 MG TABLET PO SCH (21:30)
[2020-09-22] MEDS: ALBUTEROL SULFATE HFA (90 MCG/PUFF) 8 GM MDI IH SCH ×3 (00:10→13:11)
[2020-09-22] MEDS: GABAPENTIN 100 MG CAPSULE PO SCH ×2 (06:07→14:11)
[2020-09-22 06:30] LABS: ALBUMIN 3.1 g/dL (3.5-5.0); ALKALINE PHOSPHATASE 110 U/L (38-126); ANION GAP 5 (5-19); ASPARTATE AMINO TRANSFERASE 19 U/L (14-36); BILIRUBIN,DIRECT 0.2 mg/dL (0.0-0.4); BILIRUBIN,TOTAL 0.6 mg/dL (0.2-1.3); BLOOD UREA NITROGEN 19 mg/dL (7-20); CALCIUM 9.2 mg/dL (8.4-10.2); CARBON DIOXIDE 28 mmol/L (22-30); CHLORIDE 100 mmol/L (98-107); GLUCOSE 224 mg/dL (75-110); POTASSIUM 4.9 mmol/L (3.6-5.0); TOTAL PROTEIN 6.1 g/dL (6.3-8.2)
[2020-09-22 06:40] LABS: C-REACTIVE PROTEIN < 5.0 mg/L (<10.0); CREATINE KINASE < 20 U/L (30-135)
[2020-09-22] MEDS: PANTOPRAZOLE SODIUM 40 MG TABLET.DR PO SCH (08:21)
[2020-09-22] MEDS: FUROSEMIDE 20 MG TABLET PO SCH (08:21)
[2020-09-22] MEDS: FAMOTIDINE 20 MG TABLET PO SCH (09:40)
[2020-09-22] MEDS: CHOLECALCIFEROL (D3) 1,000 UNIT (25 MCG) TABLET PO SCH (09:40)
[2020-09-22] MEDS: POTASSIUM CHLORIDE 10 MEQ TABLET.ER PO SCH (09:40)
[2020-09-22] MEDS: ENOXAPARIN SODIUM INJ 40 MG/0.4 ML DISP.SYRIN SUBCUT SCH (09:40)
[2020-09-22] MEDS: ZINC SULFATE 220 MG CAPSULE PO SCH (09:40)
[2020-09-22] MEDS: ASCORBIC ACID 500 MG TABLET PO SCH (09:40)
[2020-09-22] MEDS: DEXAMETHASONE SOD PHOS INJ 10 MG/1 ML VIAL IV SCH (09:40)
[2020-09-22] MEDS: VENLAFAXINE HCL 75 MG TABLET PO SCH (09:40)
[2020-09-22] MEDS: CARVEDILOL 12.5 MG TABLET PO SCH (09:54)
[2020-09-22] MEDS: LORAZEPAM 1 MG TABLET PO PRN (09:54)
--- NOTE | 2020-09-22 16:14 | PDOC DISCHARGE SUMMARY ---
Impression - Admit/DC Date/PCP Admission Date/Primary Care Provider: 09/15/20 12:56 VIARJ WHATLEY MD Discharge Date: 09/22/20 - Discharge Diagnosis (1) Acute respiratory failure due to COVID-19 Is this a current diagnosis for this admission?: Yes (2) Acute respiratory failure with hypoxia Is this a current diagnosis for this admission?: Yes (3) Advance care planning Is this a current diagnosis for this admission?: Yes (4) Anxiety Is this a current diagnosis for this admission?: Yes (5) COVID-19 Is this a current diagnosis for this admission?: Yes (6) Neuropathic pain of left lower extremity Is this a current diagnosis for this admission?: Yes (7) Pneumonia due to COVID-19 virus Is this a current diagnosis for this admission?: Yes (8) Dyspnea Is this a current diagnosis for this admission?: Yes (9) HTN (hypertension) Is this a current diagnosis for this admission?: Yes (10) Hyperlipidemia Is this a current diagnosis for this admission?: Yes - Assessment Summary: Per Previous Physician: "EVERARDO STEPHEN is a 69 year old female with a history of hypertension, hypertriglyceridemia, depression, neuropathy in left leg, who presents to the hospital with complaints of progressive shortness of breath which has been going on over the past several days. She also complains of body aches and fevers. She felt quite breathless today and decided to come in. Of note, she had presented to the hospital ER on 09/07/2020 with complaints of shortness of breath for the pRIOR 3 days as well as fevers. At that time she was tested for COVID-19 which came back positive. She has been discharged home for self- isolation. However at this time she presents hypoxic. Noted to be 87% on room air in the ER. Referred to hospitalist service for admission. She denies any chest pain, diarrhea." 09/20/2020 Per my discussion with nursing, patient is emotionally labile at times and intermittently tearful. I did have a discussion with the patient today about her progress and informed her that she is doing extremely well considering her morbid obesity with BMI 43.2, medical comorbidities, advanced age, and COVID-19 active infection. She is breathing comfortably on room air. She is being closely monitored as patients with Covid pneumonia have a tendency to get abruptly worse symptoms later in the course of infection. She has no new complaints otherwise. 09/21/2020 Patient seems to be in much better spirits today. I believe she may be able to leave the hospital tomorrow if she continues to improve. She is currently maintained on room air. I recommended to the patient that she still get the vaccine even though she was infected with COVID-19 as early studies indicate that immunity due to COVID-19 infection can potentially wane over time and put patients at risk for recurrent infection. On day of discharge, patient breathing stable on room air. Appears to be in good spirits overall although her is now in the ED reportedly. He had Covid previously as well and is still having some breathing symptoms reportedly. Patient agreeable to discharge and she was instructed to quarantine at home for several more days. She would benefit from follow-up with PCP within 1 week and if she still has respiratory symptoms beyond that, she should see a scenic designer for PFTs. (1) Pneumonia due to COVID-19 virus Per Previous Physician: "Patient was 11 days out from symptom onset so did not qualify for Remdesivir Continue dexamethasone Vitamin and zinc supplements S/p 2 doses of ivermectin s/p covalascent plasma" Very slow, gradual, improvement Recommend getting vaccine outpatient when this is available to her Full dose aspirin daily for the next 14 days Steroid taper Continue vitamin supplements outpatient Would benefit greatly from significant weight loss (2) Acute respiratory failure with hypoxia Per Previous Physician: "Patient is no longer requiring oxygen. Able to tolerate being on room air at rest. Ambulatory pulse ox on room air is 87%. We'll give another day on steriods and re-evaluate tomorrow." Breathing reasonably well on room air provided she is not exerting herself (3) Neuropathic pain of left lower extremity Per Previous Physician: "Has history of iatrogenic pinched nerve in her left hip from a hip injection attempt. Continue gabapentin and muscle relaxant. Follow up as outpatient as needed" Okay to increase dose of Flexeril if it is not effective provided patient is not becoming somnolent (4) HTN (hypertension) Continue Coreg (5) Hyperlipidemia Continue Zetia (6) Anxiety Improved today - Additional Information Resuscitation Status: Full Code Discharge Diet: As Tolerated, Cardiac Discharge Activity: Activity As Tolerated, Balance Activity w/Rest Referrals: VIRAJ WHATLEY MD [Primary Care Provider] - Follow up as needed (spoke with [facility], they will contact the patient and give appointment) Prescriptions: Aspirin [Aspirin 325 mg Tablet] 325 mg PO DAILY PRN 14 Days #1 pkg PRN Reason: Prednisone [Deltasone 10 mg Tablet] 10 mg PO ASDIR PRN #32 tablet PRN Reason: Albuterol Sulfate [Ventolin Hfa 8 gm Mdi] 2 puff IH Q4HP PRN #1 inhaler PRN Reason: Shortness Of Breath Cholecalciferol (Vitamin D3) [Vitamin D3 1000 Unit Tablet] 2,000 unit PO DAILY #60 tablet Zinc Sulfate [Zinc-220 Capsule] 220 mg PO DAILY #30 capsule Home Medications: Venlafaxine HCl [Effexor 75 mg Tablet] 75 mg PO DAILY 02/15/15 Carvedilol [Coreg 12.5 mg Tablet] 12.5 mg PO Q12 09/15/20 Cyclobenzaprine HCl [Flexeril 10 mg Tablet] 10 mg PO TIDP PRN 09/15/20 Ezetimibe [Zetia 10 mg Tablet] 10 mg PO QHS 09/15/20 Furosemide [Lasix 20 mg Tablet] 20 mg PO QAM 09/15/20 Gabapentin [Neurontin 100 mg Capsule] 100 mg PO Q8 09/15/20 Meclizine HCl [Antivert 25 mg Tablet] 25 mg PO TIDP PRN 09/15/20 Multivitamin/Folic Acid/Biotin [Hair, Skin and Nails Tablet] 1 each PO DAILY 09/15/20 Ondansetron HCl [Zofran 8 mg Tablet] 8 mg PO Q8HP PRN 09/15/20 Pantoprazole Sodium [Protonix [address] Tablet] 40 mg PO BIDBS 09/15/20 Potassium Chloride [Klor-Con 10 Meq Tablet ER] 10 meq PO DAILY 09/15/20 Rosuvastatin Calcium [Crestor] 10 mg PO DAILY 09/15/20 Albuterol Sulfate [Ventolin Hfa 8 gm Mdi] 2 puff IH Q4HP PRN #1 inhaler 09/22/20 Ascorbic Acid [Vitamin C 500 mg Tablet] 1,000 mg PO BID tablet 09/22/20 Aspirin [Aspirin 325 mg Tablet] 325 mg PO DAILY PRN 14 Days #1 pkg 09/22/20 Cholecalciferol (Vitamin D3) [Vitamin D3 1000 Unit Tablet] 2,000 unit PO DAILY #60 tablet 09/22/20 Prednisone [Deltasone 10 mg Tablet] 10 mg PO ASDIR PRN #32 tablet 09/22/20 Zinc Sulfate [Zinc-220 Capsule] 220 mg PO DAILY #30 capsule 09/22/20 History of Present Illiness History of Present Illness: EVERARDO STEPHEN is a 70 year old female Physical Exam Vital Signs: Temp Pulse Resp BP Pulse Ox 98.0 F 72 18 165/69 H 98 09/22/20 12:21 09/22/20 14:00 09/22/20 03:32 09/22/20 12:21 09/22/20 12:21 Intake & Output 09/21/20 09/22/20 09/23/20 06:59 06:59 06:59 Intake Total 974 1556 Output Total 260 Balance 714 1556 Weight 108.8 kg 110.1 kg Exam: General appearance: PRESENT: no acute distress, well-developed, well-nourished, morbidly obese with BMI 43.2, smiling and in good spirits today, agreeable to discharge today breathing comfortably on room air Head exam: PRESENT: atraumatic, normocephalic Eye exam: PRESENT: conjunctiva pink. ABSENT: scleral icterus Mouth exam: PRESENT: moist Respiratory exam: PRESENT: clear to auscultation ruslan. ABSENT: rales, rhonchi, wheezes Cardiovascular exam: PRESENT: RRR. ABSENT: diastolic murmur, rubs, systolic murmur GI/Abdominal exam: PRESENT: normal bowel sounds, soft. ABSENT: distended, guarding, mass, organolmegaly, rebound, tenderness Neurological exam: PRESENT: alert, awake, oriented to person, oriented to place, oriented to time, oriented to situation Psychiatric exam: PRESENT: appropriate affect, normal mood Skin exam: PRESENT: dry, intact, warm Results Laboratory Results: WBC 7.3 10^3/uL (4.0-10.5) 09/15/20 10:45 RBC 3.63 10^6/uL (3.72-5.28) L 09/15/20 10:45 Hgb 11.3 g/dL (12.0-15.5) L 09/15/20 10:45 Hct 32.3 % (36.0-47.0) L 09/15/20 10:45 MCV 89 fl (80-97) 09/15/20 10:45 MCH 31.0 pg (27.0-33.4) 09/15/20 10:45 MCHC 34.9 g/dL (32.0-36.0) 09/15/20 10:45 RDW 13.7 % (11.5-14.0) 09/15/20 10:45 Plt Count 318 10^3/uL (150-450) 09/15/20 10:45 Lymph % (Auto) 17.4 % (13-45) 09/15/20 10:45 [place] % (Auto) 6.1 % (3-13) 09/15/20 10:45 Eos % (Auto) 0.4 % (0-6) 09/15/20 10:45 Baso % (Auto) 0.1 % (0-2) 09/15/20 10:45 Absolute Neuts (auto) 5.6 10^3/uL (1.7-8.2) 09/15/20 10:45 Absolute Lymphs (auto) 1.3 10^3/uL (0.5-4.7) 09/15/20 10:45 Absolute Monos (auto) 0.4 10^3/uL (0.1-1.4) 09/15/20 10:45 Absolute Eos (auto) 0.0 10^3/uL (0.0-0.6) 09/15/20 10:45 Absolute Basos (auto) 0.0 10^3/uL (0.0-0.2) 09/15/20 10:45 Seg Neutrophils % 76.0 % (42-78) 09/15/20 10:45 PT 13.1 SEC (11.4-15.4) 09/15/20 11:31 INR 0.97 09/15/20 11:31 INR (Anticoag Therapy) Cancelled 09/15/20 10:28 D-Dimer 0.43 ug/mL (0.00-0.50) 09/22/20 05:22 VBG pH 7.42 (7.30-7.42) 09/15/20 10:45 VBG pCO2 40.2 mmHg (35-63) 09/15/20 10:45 VBG HCO3 25.5 mmol/L (20-32) 09/15/20 10:45 VBG Base Excess 1.1 mmol/L 09/15/20 10:45 Sodium 133.3 mmol/L (137-145) L 09/22/20 05:22 Potassium 4.9 mmol/L (3.6-5.0) 09/22/20 05:22 Chloride 100 mmol/L (98-107) 09/22/20 05:22 Carbon Dioxide 28 mmol/L (22-30) 09/22/20 05:22 Anion Gap 5 (5-19) 09/22/20 05:22 BUN 19 mg/dL (7-20) 09/22/20 05:22 Creatinine 0.61 mg/dL (0.52-1.25) 09/22/20 05:22 Est GFR ( Amer) > 60 (>60) 09/22/20 05:22 Est GFR (MDRD) Non-Af > 60 (>60) 09/22/20 05:22 Glucose 224 mg/dL (75-110) H 09/22/20 05:22 POC Glucose 149 mg/dL (70-110) H 09/15/20 15:28 Lactic Acid 1.1 mmol/L (0.7-2.1) 09/15/20 16:14 Calcium 9.2 mg/dL (8.4-10.2) 09/22/20 05:22 Ferritin 277.00 ng/mL (11.1-264.0) H 09/22/20 05:22 Total Bilirubin 0.6 mg/dL (0.2-1.3) 09/22/20 05:22 Direct Bilirubin 0.2 mg/dL (0.0-0.4) 09/22/20 05:22 Neonat Total Bilirubin Not Reportable 09/22/20 05:22 Neonat Direct Bilirubin Not Reportable 09/22/20 05:22 Neonat Indirect Bili Not Reportable 09/22/20 05:22 AST 19 U/L (14-36) 09/22/20 05:22 ALT 23 U/L (<35) 09/22/20 05:22 Alkaline Phosphatase 110 U/L (38-126) 09/22/20 05:22 Creatine Kinase < 20 U/L (30-135) L 09/22/20 05:22 Troponin I < 0.012 ng/mL 09/15/20 10:45 C-Reactive Protein < 5.0 mg/L (<10.0) 09/22/20 05:22 Total Protein 6.1 g/dL (6.3-8.2) L 09/22/20 05:22 Albumin 3.1 g/dL (3.5-5.0) L 09/22/20 05:22 Urine Color YELLOW 09/15/20 12:17 Urine Appearance CLEAR 09/15/20 12:17 Urine pH 6.0 (5.0-9.0) 09/15/20 12:17 Ur Specific [place] 1.010 09/15/20 12:17 Urine Protein NEGATIVE mg/dL (NEGATIVE) 09/15/20 12:17 Urine Glucose (UA) NEGATIVE mg/dL (NEGATIVE) 09/15/20 12:17 Urine Ketones NEGATIVE mg/dL (NEGATIVE) 09/15/20 12:17 Urine Blood NEGATIVE (NEGATIVE) 09/15/20 12:17 Urine Nitrite NEGATIVE (NEGATIVE) 09/15/20 12:17 Urine Bilirubin NEGATIVE (NEGATIVE) 09/15/20 12:17 Urine Urobilinogen NEGATIVE mg/dL (<2.0) 09/15/20 12:17 Ur Leukocyte Esterase NEGATIVE (NEGATIVE) 09/15/20 12:17 Urine WBC (Auto) 1 /HPF 09/15/20 12:17 U Hyaline Cast (Auto) 5 /LPF 09/15/20 12:17 Squamous Epi Cells Auto <1 /HPF 09/15/20 12:17 Urine Mucus (Auto) RARE /LPF 09/15/20 12:17 Urine Ascorbic Acid NEGATIVE (NEGATIVE) 09/15/20 12:17 Blood Type A POSITIVE 09/15/20 16:14 09/15/20 10:45 Troponin I < 0.012 Impressions: Chest/Abdomen CTA 09/15/20 00:00 IMPRESSION: 1. There is no pulmonary embolus. There is no aortic aneurysm or dissection. 2. Patchy ground-glass infiltrates in both lungs consistent with the diagnosis of COVID-19 pneumonia. Chest X-Ray 09/15/20 09:45 IMPRESSION: Cardiomegaly and bilateral patchy parenchymal opacities in a jacque bronchial distribution. Differential considerations include pulmonary edema multifocal pneumonia. Plan Plan of Treatment: Follow-up with PCP Full dose aspirin for at least 14 days Steroid taper Time Spent: Greater than 30 Minutes Stroke Is this a Stroke Patient?: No Acute Heart Failure Is this a Heart Failure Patient?: No
[2020-09-22 16:20] VITALS: BP 157/61
== END 2020-09-22 16:59 | disposition home or self-care (01) | DRG 177 ==
LOC: ER 09:23 → EH 12:56 → 3W 15:14
PROVIDERS: ADMIT Internal Medicine; ATTEND Internal Medicine
PROC: XW13325 Transfusion of Convalescent Plasma (Nonautologous) into Peripheral Vein, Percutaneous Approach, New Technology Group 5 (ICD-10-PCS; principal; 2020-09-15)
PROC: 5A09457 Assistance with Respiratory Ventilation, 24-96 Consecutive Hours, Continuous Positive Airway Pressure (ICD-10-PCS; 2020-09-18)
DX: U07.1 COVID-19 (principal); J12.89 Other viral pneumonia; J96.01 Acute respiratory failure with hypoxia; Z68.41 Body mass index [BMI] 40.0-44.9, adult; F41.9 Anxiety disorder, unspecified; G57.92 Unspecified mononeuropathy of left lower limb; I10 Essential (primary) hypertension; E78.5 Hyperlipidemia, unspecified; E78.1 Pure hyperglyceridemia; F32.9 Major depressive disorder, single episode, unspecified; E66.01 Morbid (severe) obesity due to excess calories; Z79.82 Long term (current) use of aspirin; Z79.52 Long term (current) use of systemic steroids; Z79.899 Other long term (current) drug therapy; Z88.8 Allergy status to other drugs, medicaments and biological substances; Z83.3 Family history of diabetes mellitus; Z82.49 Family history of ischemic heart disease and other diseases of the circulatory system
CPT/HCPCS: 36415; 36430; 71045; 71275; 80053; 81001; 82550; 82728; 82803; 82962; 83605; 84484; 85025; 85379; 85610; 86140; 86900; 86901; 87040; 93005; 93010; 94660; 96374; 99285; J1100; J1650; J2405; J3490; J7040